=== PATIENT | female | born 1965 | race Caucasian/White ===

== ENCOUNTER 2018-10-22 19:48 | Emergency (ER) | payer MEDICARE, MEDICAID ==
[~2018-10-22] VITALS: Ht 157.5 cm; Wt 120.5 kg
[2018-10-22 20:10] VITALS: BP 195/131
[2018-10-22] MEDS ORDERED: IBUP-1985 PO (20:39)
== END 2018-10-22 20:57 | disposition home or self-care (01) ==
LOC: ER 19:49
DX: M25.512 Pain in left shoulder (principal); Z98.890 Other specified postprocedural states; Z79.899 Other long term (current) drug therapy
CPT/HCPCS: 99282

== ENCOUNTER 2020-02-10 22:38 | Inpatient (IN) | payer MEDICARE, MEDICAID ==
[~2020-02-10] VITALS: Ht 157.5 cm; Wt 118.2 kg
[~2020-02-10 22:38] MED LIST: IBUP-1985 PO
[2020-02-10] MEDS ORDERED: CefTRIAXone 2gm/D5W 50ml 50 ML IV ONE (23:10)
[2020-02-10] MEDS ORDERED: normal saline 1000ML IV soln IVB ONE (23:10)
[2020-02-10 23:30] LABS: BASOPHILS % (AUTO) 0.1 % (0-1); EOSINOPHILS % (AUTO) 0 % (0-6); HEMATOCRIT 32.8 % (35.0-45.0); HEMOGLOBIN 11.1 g/dl (12.0-16.0); LYMPHOCYTES # (AUTO) 1.3 X10'3 (1.1-4.8); LYMPHOCYTES % (AUTO) 9.4 % (21-51); MEAN CORPUSCULAR HEMOGLOBIN 31.6 PG (27.0-31.0); MEAN CORPUSCULAR HGB CONC 33.7 g/dL (33.0-36.5); MEAN CORPUSCULAR VOLUME 93.9 FL (78-98); MEAN PLATELET VOLUME 9.1 FL (7.4-10.4); MONOCYTES # (AUTO) 1.1 X10'3 (0-0.9); MONOCYTES % (AUTO) 7.8 % (2-12); NEUTROPHILS # (AUTO) 11.3 X10'3 (1.8-7.7); NEUTROPHILS % (AUTO) 82.7 % (42-75); PLATELET COUNT 167 X10'3 (140-440); RED BLOOD COUNT 3.49 X10'6 (4.20-5.60); RED CELL DISTRIBUTION WIDTH 13.7 % (11.5-14.5); WHITE BLOOD COUNT 13.7 X10'3 (4.5-11.0)
[2020-02-10 23:43] LABS: PARTIAL THROMBOPLASTIN TIME 33 SECONDS (22-32)
[2020-02-10 23:56] LABS: ALBUMIN 3.1 G/DL (3.4-5.0); ALBUMIN/GLOBULIN RATIO 0.7 (1.1-1.5); ALKALINE PHOSPHATASE 62 IU/L (46-116); ANION GAP 13 (8-16); ASPARTATE AMINO TRANSFERASE 35 U/L (10-37); BILIRUBIN,TOTAL 0.6 MG/DL (0.1-1.0); BLOOD UREA NITROGEN 40 MG/DL (7-18); BUN/CREATININE RATIO 9.5 (6.6-38.0); CALCIUM 8.3 MG/DL (8.5-10.1); CHLORIDE 100 MMOL/L (99-107); CREATININE 4.21 MG/DL (0.40-0.90); GLUCOSE 97 MG/DL (70-104); MAGNESIUM 1.9 MG/DL (1.5-2.4); POTASSIUM 3.2 MMOL/L (3.5-5.1); SODIUM 136 MMOL/L (135-145); TOTAL CARBON DIOXIDE 23.3 MMOL/L (24-32); TOTAL PROTEIN 7.8 G/DL (6.4-8.2); eGFR 11 ML/MIN
[2020-02-11 00:04] LABS: ALANINE AMINOTRANSFERASE 21 U/L (12-78)
[2020-02-11] MEDS ORDERED: normal saline 1000ML IV soln IVB ONE (00:05)
[2020-02-11] MEDS ORDERED: NO HOME MEDS (00:06)
[2020-02-11] MEDS: normal saline 1000ml 1,000 ML IV SCH ×3 (00:38→16:38)
[2020-02-11] MEDS ORDERED: magnesium hydroxide 30ml (MOM) UD suspension PO PRN (00:40)
[2020-02-11] MEDS ORDERED: acetaminophen 325mg tablet PO PRN (00:40)
[2020-02-11] MEDS ORDERED: mag hydrox/Alum hydrox/simeth 30ml oral suspension PO PRN (00:40)
[2020-02-11 01:55] VITALS: BP 150/68
--- NOTE | 2020-02-11 02:03 | NUR ---
Attempted to call dr. ray three times for potassium replacement orders. Unable to reach him at this time.
[2020-02-11] MEDS ORDERED: potassium CL 10mEq/100ml bag 100 ML IV PRN ×2 (02:30)
[2020-02-11] MEDS ORDERED: potassium Cl 20 mEq SR tablet PO PRN ×2 (02:30)
--- NOTE | 2020-02-11 06:00 | NUR ---
Patient in room [facility] 355. I have received report from JO ANN Lucas and had the opportunity to ask questions and assume patient care.
[2020-02-11] MEDS: K and/or MAG REPLACEMENT MC SCH ×2 (08:05→20:00)
[2020-02-11 08:50] VITALS: BP 135/82
[2020-02-11] MEDS ORDERED: ceFAZolin 1GM/D5W- ADD-VANTAGE 50 ML IV SCH (09:55)
[2020-02-11] MEDS ORDERED: potassium chloride 10mEq ER tablet PO ONE (09:55)
[2020-02-11] MEDS: heparin, porcine 5000 units/ml vial SQ SCH ×2 (10:20→20:43)
[2020-02-11] MEDS: HYDROcodone/acetaminophen 5mg/325mg tablet PO PRN ×3 (10:21→21:31)
[2020-02-11 11:10] VITALS: BP 112/64
--- NOTE | 2020-02-11 12:00 | NUR ---
MD Car stated NOT to use the K protocol as patient has a high Creatinine and low GFR so I am to give a once dose of a 10 meq potassium.
[2020-02-11] MEDS ORDERED: CefTRIAXone/D5W-Rocephin 1gm 50 ML IV SCH (14:00)
[2020-02-11] MEDS: ceFAZolin 1GM/D5W- ADD-VANTAGE 50 ML IV SCH (15:21)
--- NOTE | 2020-02-11 18:00 | NUR ---
Problems reprioritized. Patient report given, questions answered & plan of care reviewed with Corine RN.
--- NOTE | 2020-02-11 19:30 | NUR ---
pt states she's had diagnostic studies in [place], but did not get results as she moved; states she did have ? barium swallow study about a year ago at [facility], but did not follow up with results Addendum: 02/12/20 at 0029 by Laurita Becerra RN Amended: Links added.
--- NOTE | 2020-02-11 19:30 | NUR ---
pt states she has stress incont; uses a aleisha pad Addendum: 02/12/20 at 0029 by Laurita Becerra RN Amended: Links added.
--- NOTE | 2020-02-11 19:30 | NUR ---
pt states she's had frequent loose stools before admit; & x4 earlier today; aware of need to sent stool sample to lab Addendum: 02/12/20 at 0201 by Laurita Becerra RN Amended: Links added.
[2020-02-11] MEDS: lactobacillus rhamnosus 10,000 MMU CELLS/CAPSULE PO SCH (20:42)
[2020-02-11 20:45] VITALS: BP 130/66
[2020-02-12] VITALS: BP 125/62
[2020-02-12] MEDS: ceFAZolin 1GM/D5W- ADD-VANTAGE 50 ML IV SCH ×3 (00:35→17:27)
[2020-02-12] MEDS: normal saline 1000ml 1,000 ML IV SCH ×2 (03:04→14:48)
[2020-02-12] MEDS: HYDROcodone/acetaminophen 5mg/325mg tablet PO PRN ×3 (03:05→14:56)
[2020-02-12 05:37] LABS: BASOPHILS % (AUTO) 0.2 % (0-1); EOSINOPHILS # (AUTO) 0.1 X10'3 (0-0.9); EOSINOPHILS % (AUTO) 1.7 % (0-6); HEMOGLOBIN 9.4 g/dl (12.0-16.0); LYMPHOCYTES % (AUTO) 14.9 % (21-51); MEAN CORPUSCULAR HEMOGLOBIN 31.7 PG (27.0-31.0); MEAN CORPUSCULAR HGB CONC 33.7 g/dL (33.0-36.5); MEAN CORPUSCULAR VOLUME 94.1 FL (78-98); MEAN PLATELET VOLUME 9.8 FL (7.4-10.4); MONOCYTES # (AUTO) 0.8 X10'3 (0-0.9); MONOCYTES % (AUTO) 12.2 % (2-12); NEUTROPHILS # (AUTO) 4.7 X10'3 (1.8-7.7); PLATELET COUNT 131 X10'3 (140-440); RED BLOOD COUNT 2.97 X10'6 (4.20-5.60); RED CELL DISTRIBUTION WIDTH 13.8 % (11.5-14.5); WHITE BLOOD COUNT 6.6 X10'3 (4.5-11.0)
[2020-02-12 05:56] LABS: ALANINE AMINOTRANSFERASE 20 U/L (12-78); ALBUMIN 2.4 G/DL (3.4-5.0); ALBUMIN/GLOBULIN RATIO 0.6 (1.1-1.5); ALKALINE PHOSPHATASE 50 IU/L (46-116); ANION GAP 15 (8-16); ASPARTATE AMINO TRANSFERASE 28 U/L (10-37); BILIRUBIN,TOTAL 0.2 MG/DL (0.1-1.0); BLOOD UREA NITROGEN 54 MG/DL (7-18); BUN/CREATININE RATIO 8.8 (6.6-38.0); CALCIUM 8.1 MG/DL (8.5-10.1); CHLORIDE 102 MMOL/L (99-107); CREATININE 6.15 MG/DL (0.40-0.90); GLUCOSE 91 MG/DL (70-104); POTASSIUM 3.4 MMOL/L (3.5-5.1); SODIUM 136 MMOL/L (135-145); TOTAL CARBON DIOXIDE 18.8 MMOL/L (24-32); TOTAL PROTEIN 6.5 G/DL (6.4-8.2); eGFR 7 ML/MIN
--- NOTE | 2020-02-12 06:30 | NUR ---
Patient in room [facility] 355. I have received report from JO ANN Pool and had the opportunity to ask questions and assume patient care.
[2020-02-12 07:00] VITALS: BP 114/92
[2020-02-12] MEDS: heparin, porcine 5000 units/ml vial SQ SCH ×2 (08:19→20:27)
[2020-02-12] MEDS: lactobacillus rhamnosus 10,000 MMU CELLS/CAPSULE PO SCH ×2 (08:19→20:27)
[2020-02-12] MEDS: K and/or MAG REPLACEMENT MC SCH ×2 (08:31→19:33)
[2020-02-12 11:00] VITALS: BP 123/69
--- NOTE | 2020-02-12 18:06 | NUR ---
Problems reprioritized. Patient report given, questions answered & plan of care reviewed with JO ANN Pryor.
--- NOTE | 2020-02-12 18:13 | NUR ---
Pottasium replacement for K+ 3.[address] Galeas D/T renal failure.
[2020-02-12 18:30] VITALS: BP 146/84
--- NOTE | 2020-02-12 18:46 | NUR ---
Patient in room [facility] 355. I have received report from JO ANN Jade and had the opportunity to ask questions and assume patient care.
[2020-02-12 18:56] LABS: CLARITY,URINE SLIGHTLY CLOUDY (Clear); COLOR,URINE YELLOW (Yellow); GLUCOSE, URINE NEGATIVE (Neg); KETONES,URINE NEGATIVE (Neg); OCCULT BLOOD,URINE LARGE (Neg); PH,URINE 5.5 (4.8-8.0); PROTEIN,URINE 30 mg/dl (Neg)
[2020-02-12 18:57] LABS: LEUKOCYTE ESTERASE ,URINE NEGATIVE (Neg); NITRITES, URINE NEGATIVE (Neg); UROBILINOGEN,URINE 0.2 E.U/dL (0.2-1.0)
[2020-02-12 18:59] LABS: UA COLLECTION TYPE CLN CATCH MIDSTREAM
[2020-02-12 19:06] LABS: BACTERIA,URINE 1+ /HPF (Neg); WBC,URINE 0-4 /HPF (0-4)
[2020-02-12 19:07] LABS: RBC,URINE 20-50 /HPF (0-2); SQUAMOUS EPITHELIAL CELL,UR FEW /LPF (FEW)
[2020-02-12 19:29] LABS: UA EOSINOPHILS FEW EOS /HPF
[2020-02-12] MEDS: mineral oil/petrolatum, white cream 113gm jar TP SCH (20:27)
[2020-02-13] MEDS: normal saline 1000ml 1,000 ML IV SCH ×3 (00:02→16:38)
[2020-02-13] MEDS: ceFAZolin 1GM/D5W- ADD-VANTAGE 50 ML IV SCH ×3 (00:02→16:00)
[2020-02-13 00:15] VITALS: BP 142/81
[2020-02-13] MEDS: ondansetron/PF 4mg/2ml inj IV PRN ×2 (01:54→13:14)
[2020-02-13 05:22] LABS: BASOPHILS % (AUTO) 0.4 % (0-1); EOSINOPHILS # (AUTO) 0.1 X10'3 (0-0.9); EOSINOPHILS % (AUTO) 2.3 % (0-6); HEMATOCRIT 27.4 % (35.0-45.0); HEMOGLOBIN 9.3 g/dl (12.0-16.0); LYMPHOCYTES # (AUTO) 1.2 X10'3 (1.1-4.8); LYMPHOCYTES % (AUTO) 19.1 % (21-51); MEAN CORPUSCULAR HEMOGLOBIN 32.3 PG (27.0-31.0); MEAN CORPUSCULAR HGB CONC 33.9 g/dL (33.0-36.5); MEAN CORPUSCULAR VOLUME 95.3 FL (78-98); MEAN PLATELET VOLUME 9.7 FL (7.4-10.4); MONOCYTES # (AUTO) 0.6 X10'3 (0-0.9); MONOCYTES % (AUTO) 9.8 % (2-12); NEUTROPHILS # (AUTO) 4.4 X10'3 (1.8-7.7); NEUTROPHILS % (AUTO) 68.4 % (42-75); PLATELET COUNT 150 X10'3 (140-440); RED BLOOD COUNT 2.87 X10'6 (4.20-5.60); WHITE BLOOD COUNT 6.4 X10'3 (4.5-11.0)
[2020-02-13 05:39] LABS: ALANINE AMINOTRANSFERASE 11 U/L (12-78); ALBUMIN 2.5 G/DL (3.4-5.0); ALBUMIN/GLOBULIN RATIO 0.6 (1.1-1.5); ALKALINE PHOSPHATASE 51 IU/L (46-116); ANION GAP 14 (8-16); BILIRUBIN,TOTAL 0.3 MG/DL (0.1-1.0); BLOOD UREA NITROGEN 56 MG/DL (7-18); BUN/CREATININE RATIO 7.8 (6.6-38.0); CALCIUM 8.1 MG/DL (8.5-10.1); CHLORIDE 103 MMOL/L (99-107); CREATININE 7.19 MG/DL (0.40-0.90); GLUCOSE 90 MG/DL (70-104); SODIUM 136 MMOL/L (135-145); TOTAL CARBON DIOXIDE 19.1 MMOL/L (24-32); TOTAL PROTEIN 6.8 G/DL (6.4-8.2); eGFR 6 ML/MIN
[2020-02-13 06:10] LABS: ASPARTATE AMINO TRANSFERASE 31 U/L (10-37); POTASSIUM 4.3 MMOL/L (3.5-5.1)
--- NOTE | 2020-02-13 06:30 | NUR ---
Patient in room [facility] 355. I have received report from Roya CHERRY and had the opportunity to ask questions and assume patient care.
--- NOTE | 2020-02-13 06:40 | NUR ---
Patient in room [facility] 355. I have received report from Roya CHERRY and had the opportunity to ask questions and assume patient care.
--- NOTE | 2020-02-13 06:41 | NUR ---
Problems reprioritized. Patient report given, questions answered & plan of care reviewed with JO ANN Can.
[2020-02-13 07:26] VITALS: BP 141/70
[2020-02-13] MEDS: K and/or MAG REPLACEMENT MC SCH ×2 (08:00→19:28)
[2020-02-13] MEDS: lactobacillus rhamnosus 10,000 MMU CELLS/CAPSULE PO SCH ×2 (08:39→20:35)
[2020-02-13] MEDS: mineral oil/petrolatum, white cream 113gm jar TP SCH ×3 (08:40→20:36)
[2020-02-13] MEDS: heparin, porcine 5000 units/ml vial SQ SCH ×2 (08:44→20:36)
--- NOTE | 2020-02-13 10:07 | NUR ---
Spoke with angio about patient possible placement of TDC today, made angio aware patient is not NPO and that patient had received heparin today as well. Angio will let me know how we are going to proceed.
[2020-02-13] MEDS ORDERED: LIDOcaine 1%/PF 5ML 10 MG/ML VIAL ONE (11:35)
[2020-02-13] MEDS ORDERED: heparin 1,000unit/ml 10ml vial 10 ML ONE (11:35)
[2020-02-13] MEDS ORDERED: fentaNYL/PF 50MCG/1 ML 2ML syringe ONE (11:36)
[2020-02-13] MEDS ORDERED: gelatin sponge, absorbable (Gelfoam 12-7MM) sponge TP ONE (11:58)
[2020-02-13] MEDS ORDERED: normal saline 1000ml 250 ML IV PRN (12:23)
[2020-02-13] MEDS ORDERED: epoetin 20,000 units/ml inj IV ONE (12:25)
[2020-02-13] MEDS ORDERED: heparin 1,000 units/ml 10ml inj IV ONE (12:25)
[2020-02-13] MEDS ORDERED: heparin 1,000 units/ml 10ml inj HE ONE ×2 (12:30)
--- NOTE | 2020-02-13 16:03 | NUR ---
Patient just being started on dialysis at this time, verified that antibiotics will dialyze off the patient so medications are on hold at this time.
[2020-02-13 18:00] VITALS: BP 152/83
--- NOTE | 2020-02-13 18:22 | NUR ---
Problems reprioritized. Patient report given, questions answered & plan of care reviewed with Prudence RN.
--- NOTE | 2020-02-13 19:27 | NUR ---
Patient in room [facility] 355. I have received report from Juan José CHERRY and had the opportunity to ask questions and assume patient care.
[2020-02-13] MEDS: HYDROcodone/acetaminophen 5mg/325mg tablet PO PRN (20:35)
[2020-02-14] VITALS: BP 127/56
[2020-02-14] MEDS: normal saline 1000ml 1,000 ML IV SCH (00:06)
[2020-02-14] MEDS: ceFAZolin 1GM/D5W- ADD-VANTAGE 50 ML IV SCH ×3 (00:06→15:58)
[2020-02-14] MEDS: ondansetron/PF 4mg/2ml inj IV PRN (02:42)
--- NOTE | 2020-02-14 06:31 | NUR ---
Problems reprioritized. Patient report given, questions answered & plan of care reviewed with Ana Luisa CHERRY.
--- NOTE | 2020-02-14 06:36 | NUR ---
Patient in room SANDY 355B. I have received report from Ana Luisa CHERRY and had the opportunity to ask questions and assume patient care.
--- NOTE | 2020-02-14 06:51 | NUR ---
Patient in room [facility] 355. I have received report from JO ANN Villafuerte and had the opportunity to ask questions and assume patient care.
[2020-02-14 06:57] LABS: BASOPHILS % (AUTO) 0.5 % (0-1); EOSINOPHILS # (AUTO) 0.1 X10'3 (0-0.9); EOSINOPHILS % (AUTO) 2.4 % (0-6); HEMATOCRIT 26.9 % (35.0-45.0); LYMPHOCYTES # (AUTO) 1.2 X10'3 (1.1-4.8); LYMPHOCYTES % (AUTO) 20.7 % (21-51); MEAN CORPUSCULAR HEMOGLOBIN 31.5 PG (27.0-31.0); MEAN CORPUSCULAR HGB CONC 33.5 g/dL (33.0-36.5); MEAN CORPUSCULAR VOLUME 94.2 FL (78-98); MEAN PLATELET VOLUME 9.3 FL (7.4-10.4); MONOCYTES # (AUTO) 0.6 X10'3 (0-0.9); MONOCYTES % (AUTO) 11.1 % (2-12); NEUTROPHILS # (AUTO) 3.7 X10'3 (1.8-7.7); NEUTROPHILS % (AUTO) 65.3 % (42-75); PLATELET COUNT 167 X10'3 (140-440); RED BLOOD COUNT 2.85 X10'6 (4.20-5.60); WHITE BLOOD COUNT 5.7 X10'3 (4.5-11.0)
[2020-02-14 07:17] LABS: ALANINE AMINOTRANSFERASE 6 U/L (12-78); ALBUMIN 2.6 G/DL (3.4-5.0); ALBUMIN/GLOBULIN RATIO 0.6 (1.1-1.5); ALKALINE PHOSPHATASE 52 IU/L (46-116); ANION GAP 10 (8-16); ASPARTATE AMINO TRANSFERASE 22 U/L (10-37); BILIRUBIN,TOTAL 0.3 MG/DL (0.1-1.0); BLOOD UREA NITROGEN 37 MG/DL (7-18); BUN/CREATININE RATIO 6.4 (6.6-38.0); CALCIUM 8.1 MG/DL (8.5-10.1); CHLORIDE 105 MMOL/L (99-107); GLUCOSE 88 MG/DL (70-104); POTASSIUM 3.6 MMOL/L (3.5-5.1); SODIUM 139 MMOL/L (135-145); TOTAL CARBON DIOXIDE 23.6 MMOL/L (24-32); TOTAL PROTEIN 6.7 G/DL (6.4-8.2); eGFR 8 ML/MIN
[2020-02-14 08:00] VITALS: BP 146/73
[2020-02-14] MEDS ORDERED: normal saline 1000ml 250 ML IV PRN (08:00)
[2020-02-14] MEDS ORDERED: heparin 1,000 units/ml 10ml inj HE ONE ×2 (08:00)
[2020-02-14] MEDS ORDERED: epoetin 20,000 units/ml inj IV ONE (08:00)
[2020-02-14] MEDS ORDERED: heparin 1,000 units/ml 10ml inj IV ONE (08:00)
[2020-02-14] MEDS ORDERED: heparin 1,000unit/ml 10ml vial 10 ML IV ONE (08:00)
[2020-02-14] MEDS: lactobacillus rhamnosus 10,000 MMU CELLS/CAPSULE PO SCH ×2 (08:17→20:30)
[2020-02-14] MEDS: heparin, porcine 5000 units/ml vial SQ SCH ×2 (08:20→20:30)
[2020-02-14] MEDS: mineral oil/petrolatum, white cream 113gm jar TP SCH ×3 (09:49→20:36)
[2020-02-14] MEDS: HYDROcodone/acetaminophen 5mg/325mg tablet PO PRN (11:37)
[2020-02-14 11:52] VITALS: BP 153/75
--- NOTE | 2020-02-14 12:48 | NUR ---
Student documentation: I have reviewed and agree with all interventions, assessments performed and documented by Jose Daniel, nursing manager.
--- NOTE | 2020-02-14 12:48 | NUR ---
Student Medication Administration: For this medication-pass time frame, all medication were reviewed, dispensed, administered and documented per hospital policy by namita Sky.
--- NOTE | 2020-02-14 15:56 | NUR ---
Problems reprioritized. Patient report given, questions answered & plan of care reviewed with [].
--- NOTE | 2020-02-14 15:57 | NUR ---
Problems reprioritized. Patient report given, questions answered & plan of care reviewed with Ana Luisa CHERRY.
[2020-02-14 18:00] VITALS: BP 149/71
--- NOTE | 2020-02-14 18:33 | NUR ---
Problems reprioritized. Patient report given, questions answered & plan of care reviewed with JO ANN Villafuerte.
--- NOTE | 2020-02-14 19:06 | NUR ---
Patient in room [facility] 355. I have received report from ANA M CHERRY and had the opportunity to ask questions and assume patient care.
[2020-02-15] MEDS: ceFAZolin 1GM/D5W- ADD-VANTAGE 50 ML IV SCH ×3 (00:31→17:19)
[2020-02-15 00:59] VITALS: BP 136/67
[2020-02-15] MEDS: HYDROcodone/acetaminophen 5mg/325mg tablet PO PRN ×3 (03:55→20:02)
--- NOTE | 2020-02-15 06:20 | NUR ---
Problems reprioritized. Patient report given, questions answered & plan of care reviewed with Marci CHERRY.
[2020-02-15 07:00] VITALS: BP 119/56
[2020-02-15 07:17] LABS: COMPLEMENT C3, SERUM 155 mg/dL (82-167); COMPLEMENT C4, SERUM 27 mg/dL (14-44)
[2020-02-15 07:54] LABS: ALANINE AMINOTRANSFERASE 6 U/L (12-78); ALBUMIN 2.6 G/DL (3.4-5.0); ALBUMIN/GLOBULIN RATIO 0.6 (1.1-1.5); ALKALINE PHOSPHATASE 52 IU/L (46-116); ANION GAP 13 (8-16); ASPARTATE AMINO TRANSFERASE 31 U/L (10-37); BILIRUBIN,TOTAL 0.2 MG/DL (0.1-1.0); BLOOD UREA NITROGEN 46 MG/DL (7-18); BUN/CREATININE RATIO 6.4 (6.6-38.0); CALCIUM 8.3 MG/DL (8.5-10.1); CHLORIDE 105 MMOL/L (99-107); CREATININE 7.22 MG/DL (0.40-0.90); GLUCOSE 86 MG/DL (70-104); SODIUM 140 MMOL/L (135-145); TOTAL CARBON DIOXIDE 22.1 MMOL/L (24-32); TOTAL PROTEIN 6.7 G/DL (6.4-8.2); eGFR 6 ML/MIN
[2020-02-15 07:57] LABS: POTASSIUM 4.6 MMOL/L (3.5-5.1)
[2020-02-15] MEDS ORDERED: epoetin 20,000 units/ml inj IV ONE (08:00)
[2020-02-15] MEDS: heparin, porcine 5000 units/ml vial SQ SCH ×2 (08:00→20:03)
[2020-02-15] MEDS ORDERED: heparin 1,000 units/ml 10ml inj IV ONE (08:00)
[2020-02-15] MEDS ORDERED: heparin 1,000 units/ml 10ml inj HE ONE ×2 (08:00)
[2020-02-15] MEDS ORDERED: heparin 1,000unit/ml 10ml vial 10 ML IV ONE (08:00)
[2020-02-15] MEDS ORDERED: normal saline 1000ml 250 ML IV PRN (08:00)
[2020-02-15] MEDS: mineral oil/petrolatum, white cream 113gm jar TP SCH ×3 (08:25→20:06)
[2020-02-15] MEDS: lactobacillus rhamnosus 10,000 MMU CELLS/CAPSULE PO SCH ×2 (08:26→20:01)
[2020-02-15 08:28] LABS: HBSAG SCREEN Negative (Negative); HEP B CORE AB, TOT Negative (Negative)
[2020-02-15 09:01] LABS: BASOPHILS % (AUTO) 0.5 % (0-1); EOSINOPHILS # (AUTO) 0.1 X10'3 (0-0.9); HEMATOCRIT 28.6 % (35.0-45.0); HEMOGLOBIN 9.5 g/dl (12.0-16.0); LYMPHOCYTES # (AUTO) 1.3 X10'3 (1.1-4.8); LYMPHOCYTES % (AUTO) 20.7 % (21-51); MEAN CORPUSCULAR HEMOGLOBIN 31.2 PG (27.0-31.0); MEAN CORPUSCULAR HGB CONC 33.2 g/dL (33.0-36.5); MEAN CORPUSCULAR VOLUME 94.1 FL (78-98); MEAN PLATELET VOLUME 9.3 FL (7.4-10.4); MONOCYTES # (AUTO) 0.4 X10'3 (0-0.9); MONOCYTES % (AUTO) 6.5 % (2-12); NEUTROPHILS # (AUTO) 4.5 X10'3 (1.8-7.7); NEUTROPHILS % (AUTO) 70.3 % (42-75); PLATELET COUNT 206 X10'3 (140-440); RED BLOOD COUNT 3.04 X10'6 (4.20-5.60); RED CELL DISTRIBUTION WIDTH 14.1 % (11.5-14.5); WHITE BLOOD COUNT 6.4 X10'3 (4.5-11.0)
[2020-02-15 11:00] VITALS: BP 116/90
[2020-02-15] MEDS: ondansetron/PF 4mg/2ml inj IV PRN (12:25)
[2020-02-15 19:47] VITALS: BP 163/68
[2020-02-16] MEDS: ceFAZolin 1GM/D5W- ADD-VANTAGE 50 ML IV SCH ×4 (00:03→23:29)
[2020-02-16 00:13] VITALS: BP 142/74
--- NOTE | 2020-02-16 06:28 | NUR ---
Patient in room [facility] 355. I have received report from Hawk CHERRY and had the opportunity to ask questions and assume patient care.
[2020-02-16] MEDS: heparin, porcine 5000 units/ml vial SQ SCH ×2 (07:04→19:20)
[2020-02-16] MEDS: lactobacillus rhamnosus 10,000 MMU CELLS/CAPSULE PO SCH ×2 (07:11→19:20)
[2020-02-16] MEDS: mineral oil/petrolatum, white cream 113gm jar TP SCH ×3 (07:17→19:21)
[2020-02-16 07:21] VITALS: BP 176/90
[2020-02-16] MEDS: HYDROcodone/acetaminophen 5mg/325mg tablet PO PRN (09:50)
--- NOTE | 2020-02-16 09:56 | NUR ---
Faxed kitchen for a request for breakfast tray, renal diet. Patient just asked when breakfast was and states she didn't get a tray.
[2020-02-16] MEDS ORDERED: epoetin 20,000 units/ml inj IV ONE (10:00)
[2020-02-16] MEDS ORDERED: heparin 1,000unit/ml 10ml vial 10 ML IV ONE (10:00)
[2020-02-16] MEDS ORDERED: heparin 1,000 units/ml 10ml inj HE ONE ×2 (10:05)
[2020-02-16 11:00] VITALS: BP 148/64
[2020-02-16 13:08] LABS: BASOPHILS % (AUTO) 0.5 % (0-1); EOSINOPHILS # (AUTO) 0.1 X10'3 (0-0.9); EOSINOPHILS % (AUTO) 1.9 % (0-6); HEMATOCRIT 27.7 % (35.0-45.0); HEMOGLOBIN 9.2 g/dl (12.0-16.0); LYMPHOCYTES # (AUTO) 1.1 X10'3 (1.1-4.8); LYMPHOCYTES % (AUTO) 17.7 % (21-51); MEAN CORPUSCULAR HEMOGLOBIN 31.1 PG (27.0-31.0); MEAN CORPUSCULAR HGB CONC 33.2 g/dL (33.0-36.5); MEAN CORPUSCULAR VOLUME 93.7 FL (78-98); MEAN PLATELET VOLUME 9.1 FL (7.4-10.4); MONOCYTES # (AUTO) 0.5 X10'3 (0-0.9); MONOCYTES % (AUTO) 7.8 % (2-12); NEUTROPHILS # (AUTO) 4.6 X10'3 (1.8-7.7); NEUTROPHILS % (AUTO) 72.1 % (42-75); PLATELET COUNT 239 X10'3 (140-440); RED BLOOD COUNT 2.96 X10'6 (4.20-5.60); RED CELL DISTRIBUTION WIDTH 14.2 % (11.5-14.5); WHITE BLOOD COUNT 6.4 X10'3 (4.5-11.0)
[2020-02-16 13:35] LABS: ALANINE AMINOTRANSFERASE 8 U/L (12-78); ALBUMIN 2.7 G/DL (3.4-5.0); ALBUMIN/GLOBULIN RATIO 0.6 (1.1-1.5); ALKALINE PHOSPHATASE 55 IU/L (46-116); ANION GAP 12 (8-16); ASPARTATE AMINO TRANSFERASE 32 U/L (10-37); BILIRUBIN,TOTAL 0.2 MG/DL (0.1-1.0); BLOOD UREA NITROGEN 52 MG/DL (7-18); BUN/CREATININE RATIO 6.1 (6.6-38.0); CALCIUM 8.4 MG/DL (8.5-10.1); CHLORIDE 102 MMOL/L (99-107); CREATININE 8.48 MG/DL (0.40-0.90); GLUCOSE 121 MG/DL (70-104); POTASSIUM 3.9 MMOL/L (3.5-5.1); SODIUM 138 MMOL/L (135-145); TOTAL PROTEIN 7.1 G/DL (6.4-8.2); eGFR 5 ML/MIN
--- NOTE | 2020-02-16 14:47 | NUR ---
Initial: Pt admit w/ sepsis secondary to LLE cellulitis, acute renal failure vs CKD, and now on HD per . PO 75-100% avg renal diet past 3 days up from 50-75% first 2 days admit. Given pt wt and protein needs on HD w/ sepsis DX Nepro TIDWM recommended; notified. LBM 02/14. Will continue to monitor for additional protein needs. Rec: 1. continue renal diet 2. Nepro TIDWM 3. bowel care as needed 4. wts w/ HD Addendum: 02/16/20 at [address] Amended: Links added.
--- NOTE | 2020-02-16 18:18 | NUR ---
Problems reprioritized. Patient report given, questions answered & plan of care reviewed with Hawk CHERRY.
[2020-02-16] MEDS: ondansetron/PF 4mg/2ml inj IV PRN (18:25)
[2020-02-16 18:27] VITALS: BP 90/72
[2020-02-16] MEDS: NUT.TX.IMP.RENAL FXN,LAC-REDUC (Nepro) 237 ML VANILLA PO SCH (18:43)
[2020-02-16 23:37] VITALS: BP 150/78
[2020-02-17] MEDS: ondansetron/PF 4mg/2ml inj IV PRN (00:21)
[2020-02-17 07:11] VITALS: BP 151/73
[2020-02-17] MEDS: lactobacillus rhamnosus 10,000 MMU CELLS/CAPSULE PO SCH (07:50)
[2020-02-17] MEDS: ceFAZolin 1GM/D5W- ADD-VANTAGE 50 ML IV SCH (07:51)
[2020-02-17] MEDS: heparin, porcine 5000 units/ml vial SQ SCH (07:51)
[2020-02-17] MEDS: NUT.TX.IMP.RENAL FXN,LAC-REDUC (Nepro) 237 ML VANILLA PO SCH (07:53)
[2020-02-17] MEDS: mineral oil/petrolatum, white cream 113gm jar TP SCH (07:53)
[2020-02-17] MEDS ORDERED: CEPH250T PO (10:14)
[2020-02-17] MEDS ORDERED: AMLO5TAB16 PO (10:16)
[2020-02-17 11:45] VITALS: BP 149/65
--- NOTE | 2020-02-17 12:03 | NUR ---
Patient stable and appropriate for DC home with family. IV removed, all belongings taken from room. TDC left in place patient is aware of Dialysis schedule at [facility]. New prescriptions transmitted to [facility] on [address] [place] patient is aware of next due doses. Discharge instructions and packet given and reviewed with patient, all questions answered.
== END 2020-02-17 11:56 | disposition home or self-care (01) | DRG 871 ==
LOC: ER 22:39 → ED HOLD 02-11 00:38 → SUR 3N 02-11 01:35
PROVIDERS: ADMIT Internal Medicine; ATTEND Internal Medicine
PROC: 0JH63XZ Insertion of Tunneled Vascular Access Device into Chest Subcutaneous Tissue and Fascia, Percutaneous Approach (ICD-10-PCS; principal; 2020-02-13)
PROC: 02HV33Z Insertion of Infusion Device into Superior Vena Cava, Percutaneous Approach (ICD-10-PCS; 2020-02-13)
PROC: B548ZZA Ultrasonography of Superior Vena Cava, Guidance (ICD-10-PCS; 2020-02-13)
PROC: 5A1D70Z Performance of Urinary Filtration, Intermittent, Less than 6 Hours Per Day (ICD-10-PCS; 2020-02-13)
PROC: 5A1D70Z Performance of Urinary Filtration, Intermittent, Less than 6 Hours Per Day (ICD-10-PCS; 2020-02-16)
DX: A41.9 Sepsis, unspecified organism (principal); N17.0 Acute kidney failure with tubular necrosis; L03.116 Cellulitis of left lower limb; Z68.42 Body mass index [BMI] 45.0-49.9, adult; E87.6 Hypokalemia; D69.6 Thrombocytopenia, unspecified; I35.0 Nonrheumatic aortic (valve) stenosis; E66.01 Morbid (severe) obesity due to excess calories; G89.29 Other chronic pain; K21.9 Gastro-esophageal reflux disease without esophagitis; Z99.2 Dependence on renal dialysis; Z98.1 Arthrodesis status; Z96.653 Presence of artificial knee joint, bilateral; W57.XXXA Bitten or stung by nonvenomous insect and other nonvenomous arthropods, initial encounter; X58.XXXA Exposure to other specified factors, initial encounter; Y93.89 Activity, other specified; Y92.89 Other specified places as the place of occurrence of the external cause; Y99.8 Other external cause status
CPT/HCPCS: 36415; 36558; 71045; 76700; 76937; 80053; 81001; 82570; 83605; 83735; 83935; 84145; 84300; 85025; 85610; 85730; 86160; 86704; 86706; 87040; 87081; 87207; 87340; 93306; 93971; 99285; C1750; C1769; C1894; G0378; J0690; J0696; J1644; J2150; J2405; J3010; J7030; Q4081

== ENCOUNTER 2020-04-12 11:24 | Day surgery (SDC) | payer MEDICARE, MEDICAID ==
[~2020-04-12] VITALS: Ht 157.5 cm; Wt 121.7 kg
[~2020-04-12 11:24] MED LIST changes: +AMLO5TAB16 PO; +CEPH250T PO; -IBUP-1985 PO
[2020-04-12] MEDS ORDERED: normal saline 1000ml 1,000 ML IV SCH (11:55)
[2020-04-12 12:12] VITALS: BP 120/82
[2020-04-12] MEDS ORDERED: FA/V1TAB PO (12:16)
[2020-04-12] MEDS ORDERED: CALC667T8 PO (12:16)
[2020-04-12] MEDS ORDERED: fentaNYL/PF 50MCG/1 ML 2ML syringe ONE (13:06)
[2020-04-12] MEDS ORDERED: midazolam 2 mg/2 ml injection ONE (13:06)
[2020-04-12] MEDS ORDERED: heparin 1,000unit/ml 10ml vial 10 ML ONE (13:07)
[2020-04-12] MEDS ORDERED: LIDOcaine 1%/PF 5ML 10 MG/ML VIAL ONE (13:07)
[2020-04-12 13:51] VITALS: BP 120/88
[2020-04-12 14:25] VITALS: BP 105/55
== END 2020-04-12 14:28 | disposition home or self-care (01) ==
LOC: SSTAY O 11:24
PROVIDERS: ATTEND Radiology Vascular & Interventional Radiology
DX: T82.49XA Other complication of vascular dialysis catheter, initial encounter (principal); Y83.8 Other surgical procedures as the cause of abnormal reaction of the patient, or of later complication, without mention of misadventure at the time of the procedure; Z79.899 Other long term (current) drug therapy
CPT/HCPCS: 36581; 77001; 99152; C1750; C1769; J1644; J2250; J3010; A9270

== ENCOUNTER 2020-05-16 12:29 | Emergency (ER) | payer MEDICARE, MEDICAID ==
[~2020-05-16] VITALS: Ht 152.4 cm; Wt 116.7 kg
[~2020-05-16 12:29] MED LIST changes: +CALC667T8 PO; -CEPH250T PO; +FA/V1TAB PO
[2020-05-16 12:34] VITALS: BP 149/89
== END 2020-05-16 14:08 | disposition home or self-care (01) ==
LOC: ER 12:29
DX: T82.9XXA Unspecified complication of cardiac and vascular prosthetic device, implant and graft, initial encounter (principal); N18.6 End stage renal disease; Z99.2 Dependence on renal dialysis; Z79.899 Other long term (current) drug therapy
CPT/HCPCS: 71045; 99283

== ENCOUNTER 2020-06-27 01:15 | Emergency (ER) | payer MEDICARE, MEDICAID ==
[~2020-06-27] VITALS: Ht 157.5 cm; Wt 106.0 kg
[2020-06-27 03:24] VITALS: BP 139/74
[2020-06-28] MEDS ORDERED: LIDOcaine 1%/PF 5ML 10 MG/ML VIAL ONE (17:43)
[2020-06-28] MEDS ORDERED: heparin 1,000unit/ml 10ml vial 10 ML ONE (17:43)
[2020-06-28] MEDS ORDERED: iohexol 300 MG/1 ML 50ml polymer ONE (17:43)
[2020-06-28] MEDS ORDERED: fentaNYL/PF 50MCG/1 ML 2ML syringe ONE (17:43)
== END 2020-06-27 03:26 | disposition home or self-care (01) ==
LOC: ER 01:16
DX: T82.42XA Displacement of vascular dialysis catheter, initial encounter (principal); N18.9 Chronic kidney disease, unspecified; Z79.899 Other long term (current) drug therapy
CPT/HCPCS: 71046; 99283; J1644; J3010; Q9967

== ENCOUNTER 2020-06-28 11:25 | Day surgery (SDC) | payer MEDICARE, MEDICAID ==
[~2020-06-28] VITALS: Ht 157.5 cm; Wt 116.3 kg
[2020-06-28 11:49] VITALS: BP 154/90
[2020-06-28] MEDS ORDERED: normal saline 1000ml 1,000 ML IV SCH (12:00)
[2020-06-28 12:37] LABS: BASOPHILS % (AUTO) 0.8 % (0-1); EOSINOPHILS # (AUTO) 0.1 X10'3 (0-0.9); EOSINOPHILS % (AUTO) 2.4 % (0-6); HEMATOCRIT 39.8 % (35.0-45.0); HEMOGLOBIN 13.1 g/dl (12.0-16.0); LYMPHOCYTES # (AUTO) 1.5 X10'3 (1.1-4.8); LYMPHOCYTES % (AUTO) 26.1 % (21-51); MEAN CORPUSCULAR HEMOGLOBIN 31.4 PG (27.0-31.0); MEAN PLATELET VOLUME 8.5 FL (7.4-10.4); MONOCYTES # (AUTO) 0.5 X10'3 (0-0.9); MONOCYTES % (AUTO) 7.9 % (2-12); NEUTROPHILS # (AUTO) 3.6 X10'3 (1.8-7.7); NEUTROPHILS % (AUTO) 62.8 % (42-75); PLATELET COUNT 278 X10'3 (140-440); RED BLOOD COUNT 4.19 X10'6 (4.20-5.60); WHITE BLOOD COUNT 5.8 X10'3 (4.5-11.0)
[2020-06-28 12:42] LABS: ALBUMIN 3.5 G/DL (3.4-5.0); ANION GAP 9 (8-16); BLOOD UREA NITROGEN 42 MG/DL (7-18); BUN/CREATININE RATIO 14.3 (6.6-38.0); CALCIUM 9.4 MG/DL (8.5-10.1); CHLORIDE 106 MMOL/L (99-107); CREATININE 2.93 MG/DL (0.40-0.90); GLUCOSE 82 MG/DL (70-104); POTASSIUM 4.3 MMOL/L (3.5-5.1); SODIUM 140 MMOL/L (135-145); TOTAL CARBON DIOXIDE 25.3 MMOL/L (24-32); eGFR 17 ML/MIN
[2020-06-28 18:49] VITALS: BP 160/89
[2020-06-28] MEDS ORDERED: acetaminophen 325mg tablet PO PRN (18:50)
[2020-06-28 18:57] VITALS: BP 164/70
== END 2020-06-28 19:30 | disposition home or self-care (01) ==
LOC: SSTAY O 11:25
PROVIDERS: ATTEND Radiology Vascular & Interventional Radiology
DX: T82.42XA Displacement of vascular dialysis catheter, initial encounter (principal); N18.6 End stage renal disease; Z79.899 Other long term (current) drug therapy; Y84.8 Other medical procedures as the cause of abnormal reaction of the patient, or of later complication, without mention of misadventure at the time of the procedure; Y92.89 Other specified places as the place of occurrence of the external cause
CPT/HCPCS: 36415; 36558; 76937; 77001; 80048; 85025; C1750; C1769; C1894; J7030; A9270

== ENCOUNTER 2020-07-13 12:06 | Inpatient (IN) | payer MEDICARE, MEDICAID ==
[~2020-07-13] VITALS: Ht 157.5 cm; Wt 116.4 kg
[~2020-07-13 12:06] MED LIST changes: -AMLO5TAB16 PO
[2020-07-13] MEDS ORDERED: acetaminophen 325mg tablet PO STA (12:25)
--- NOTE | 2020-07-13 12:59 | NUR ---
AUSTIN (SISTER)[phone] PLEASE UPDATE WHEN POSSIBLE
[2020-07-13 13:01] LABS: EOSINOPHILS % (AUTO) 0 % (0-6); LYMPHOCYTES # (AUTO) 0.6 X10'3 (1.1-4.8); MONOCYTES % (AUTO) 7.5 % (2-12)
[2020-07-13 13:03] LABS: BASOPHILS % (AUTO) 0.2 % (0-1); HEMATOCRIT 35.2 % (35.0-45.0); LYMPHOCYTES % (AUTO) 4.3 % (21-51); MEAN CORPUSCULAR HEMOGLOBIN 31.9 PG (27.0-31.0); MEAN CORPUSCULAR HGB CONC 34.2 g/dL (33.0-36.5); MEAN CORPUSCULAR VOLUME 93.2 FL (78-98); MEAN PLATELET VOLUME 9.8 FL (7.4-10.4); NEUTROPHILS # (AUTO) 11.7 X10'3 (1.8-7.7); PLATELET COUNT 135 X10'3 (140-440); RED BLOOD COUNT 3.77 X10'6 (4.20-5.60); RED CELL DISTRIBUTION WIDTH 15.2 % (11.5-14.5); WHITE BLOOD COUNT 13.3 X10'3 (4.5-11.0)
[2020-07-13 13:33] LABS: PLATELET ESTIMATE NORMAL; TOTAL CELLS COUNTED 100
[2020-07-13 13:35] LABS: TOXIC VACUOLATION FEW
[2020-07-13 13:42] LABS: ALANINE AMINOTRANSFERASE 39 U/L (12-78); ALBUMIN 3.2 G/DL (3.4-5.0); ALBUMIN/GLOBULIN RATIO 0.7 (1.1-1.5); ALKALINE PHOSPHATASE 68 IU/L (46-116); ANION GAP 11 (8-16); ASPARTATE AMINO TRANSFERASE 40 U/L (10-37); BILIRUBIN,TOTAL 0.7 MG/DL (0.1-1.0); BLOOD UREA NITROGEN 33 MG/DL (7-18); BUN/CREATININE RATIO 9.7 (6.6-38.0); CALCIUM 9.3 MG/DL (8.5-10.1); CHLORIDE 95 MMOL/L (99-107); CREATININE 3.39 MG/DL (0.40-0.90); GLUCOSE 111 MG/DL (70-104); MAGNESIUM 1.5 MG/DL (1.5-2.4); POTASSIUM 3.4 MMOL/L (3.5-5.1); SODIUM 129 MMOL/L (135-145); TOTAL CARBON DIOXIDE 22.8 MMOL/L (24-32); eGFR 14 ML/MIN
[2020-07-13] MEDS ORDERED: bisacodyl 10mg suppository rectal RC PRN (14:20)
[2020-07-13] MEDS ORDERED: acetaminophen 325mg tablet PO PRN (14:20)
[2020-07-13] MEDS ORDERED: heparin 1,000unit/ml 10ml vial 10 ML IV ONE (14:20)
[2020-07-13] MEDS ORDERED: heparin 1,000 units/ml 10ml inj HE ONE ×2 (14:25)
[2020-07-13] MEDS ORDERED: FOLI1TAB34 PO (14:37)
[2020-07-13 15:00] VITALS: BP 116/86
--- NOTE | 2020-07-13 15:06 | NUR ---
Patient in room ED 9. I have received report from JO ANN Slater and had the opportunity to ask questions and assume patient care.
[2020-07-13] MEDS ORDERED: piperacillin/tazo 3.375gm/50ml 50 ML IV SCH ×2 (15:30→20:00)
[2020-07-13 16:01] LABS: CLARITY,URINE CLOUDY (Clear); COLOR,URINE AMBER (Yellow); GLUCOSE, URINE NEGATIVE (Neg); KETONES,URINE TRACE mg/dl (Neg); LEUKOCYTE ESTERASE ,URINE TRACE (Neg); NITRITES, URINE NEGATIVE (Neg); OCCULT BLOOD,URINE LARGE (Neg); PH,URINE 5.5 (4.8-8.0); PROTEIN,URINE >=300 mg/dl (Neg); UA COLLECTION TYPE CLN CATCH MIDSTREAM
[2020-07-13] MEDS: HYDROcodone/acetaminophen 10/325mg tab PO PRN ×2 (16:01→22:04)
[2020-07-13 16:06] LABS: RBC,URINE TNTC /HPF (0-2)
[2020-07-13 16:07] LABS: TRANSITIONAL EPI CELLS,URINE FEW /HPF
[2020-07-13 16:08] LABS: RENAL CELLS, URINE FEW /HPF
[2020-07-13 16:12] LABS: AMORPHOUS URATES 2+; BACTERIA,URINE 3+ /HPF (Neg)
[2020-07-13 16:14] LABS: SQUAMOUS EPITHELIAL CELL,UR FEW /LPF (FEW)
[2020-07-13] MEDS: ibuprofen tablet 400 MG TABLET PO PRN (17:08)
[2020-07-13] MEDS: piperacillin/tazo 3.375gm/50ml 50 ML IV SCH (17:09)
[2020-07-13 18:00] VITALS: BP 114/60
--- NOTE | 2020-07-13 18:36 | NUR ---
Patient in room PCU 3028. I have received report from Julienne CHERRY and had the opportunity to ask questions and assume patient care.
--- NOTE | 2020-07-13 18:40 | NUR ---
Patient in room PCU 3028. I have received report from Julienne CHERRY and had the opportunity to ask questions and assume patient care.
--- NOTE | 2020-07-13 18:46 | NUR ---
Problems reprioritized. Patient report given, questions answered & plan of care reviewed with JO ANN Meeks.
[2020-07-13] MEDS: heparin, porcine 5000 units/ml vial SQ SCH (19:21)
[2020-07-13] MEDS: docusate sod 100mg capsule PO SCH (20:18)
[2020-07-13 22:00] VITALS: BP 141/69
[2020-07-14 01:42] LABS: ALANINE AMINOTRANSFERASE 40 U/L (12-78); ALBUMIN 3.2 G/DL (3.4-5.0); ALBUMIN/GLOBULIN RATIO 0.6 (1.1-1.5); ALKALINE PHOSPHATASE 70 IU/L (46-116); ANION GAP 9 (8-16); ASPARTATE AMINO TRANSFERASE 40 U/L (10-37); BILIRUBIN,TOTAL 0.9 MG/DL (0.1-1.0); BLOOD UREA NITROGEN 18 MG/DL (7-18); BUN/CREATININE RATIO 6.4 (6.6-38.0); CALCIUM 9.3 MG/DL (8.5-10.1); CHLORIDE 95 MMOL/L (99-107); CREATININE 2.81 MG/DL (0.40-0.90); GLUCOSE 117 MG/DL (70-104); POTASSIUM 3.9 MMOL/L (3.5-5.1); SODIUM 131 MMOL/L (135-145); TOTAL CARBON DIOXIDE 26.6 MMOL/L (24-32); TOTAL PROTEIN 8.2 G/DL (6.4-8.2); eGFR 17 ML/MIN
[2020-07-14 01:46] LABS: MAGNESIUM 1.9 MG/DL (1.5-2.4); PHOSPHORUS 3.9 MG/DL (2.3-4.5)
[2020-07-14 02:00] VITALS: BP 150/80
[2020-07-14] MEDS: piperacillin/tazo 3.375gm/50ml 50 ML IV SCH ×2 (03:05→17:24)
[2020-07-14] MEDS: HYDROcodone/acetaminophen 10/325mg tab PO PRN (03:05)
[2020-07-14 05:37] LABS: BASOPHILS % (AUTO) 0.1 % (0-1); EOSINOPHILS % (AUTO) 0.1 % (0-6); HEMATOCRIT 35.6 % (35.0-45.0); HEMOGLOBIN 11.9 g/dl (12.0-16.0); LYMPHOCYTES # (AUTO) 0.6 X10'3 (1.1-4.8); LYMPHOCYTES % (AUTO) 4.9 % (21-51); MEAN CORPUSCULAR HEMOGLOBIN 31.5 PG (27.0-31.0); MEAN CORPUSCULAR HGB CONC 33.5 g/dL (33.0-36.5); MEAN PLATELET VOLUME 9.6 FL (7.4-10.4); MONOCYTES # (AUTO) 1.4 X10'3 (0-0.9); MONOCYTES % (AUTO) 11.1 % (2-12); NEUTROPHILS # (AUTO) 10.3 X10'3 (1.8-7.7); NEUTROPHILS % (AUTO) 83.8 % (42-75); PLATELET COUNT 123 X10'3 (140-440); RED BLOOD COUNT 3.79 X10'6 (4.20-5.60); RED CELL DISTRIBUTION WIDTH 15.2 % (11.5-14.5); WHITE BLOOD COUNT 12.2 X10'3 (4.5-11.0)
[2020-07-14] MEDS: oxyCODONE/APAP 10/325mg tablet PO PRN ×5 (05:49→21:31)
[2020-07-14 06:00] VITALS: BP 114/73
--- NOTE | 2020-07-14 06:24 | NUR ---
Problems reprioritized. Patient report given, questions answered & plan of care reviewed with Julienne CHERRY.
--- NOTE | 2020-07-14 06:32 | NUR ---
Patient in room PCU 3028. I have received report from JO ANN Meeks and had the opportunity to ask questions and assume patient care.
--- NOTE | 2020-07-14 07:01 | NUR ---
[place]rientee documentation: I have reviewed and agree with all interventions, assessments performed, and Medications administered documented by Rosi CHERRY.
--- NOTE | 2020-07-14 07:01 | NUR ---
Problems reprioritized. Patient report given, questions answered & plan of care reviewed with Julienne CHERRY.
[2020-07-14] MEDS ORDERED: levoFLOXACIN-Levaquin 250mg/D5 50 ML IV SCH (08:00)
[2020-07-14] MEDS: heparin, porcine 5000 units/ml vial SQ SCH ×2 (08:57→19:50)
[2020-07-14] MEDS: docusate sod 100mg capsule PO SCH ×2 (08:57→19:49)
[2020-07-14] MEDS ORDERED: vancomycin/NS 1 GM ADD-VANTAGE 250 ML IV PRN (09:55)
[2020-07-14] MEDS ORDERED: vancomycin/NS 1 GM ADD-VANTAGE 250 ML IV ONE (10:05)
[2020-07-14] MEDS: ondansetron/PF 4mg/2ml inj IV PRN (10:13)
[2020-07-14 18:00] VITALS: BP 105/67
--- NOTE | 2020-07-14 18:15 | NUR ---
Patient in room PCU 3028. I have received report from JO ANN Robins and had the opportunity to ask questions and assume patient care.
--- NOTE | 2020-07-14 19:04 | NUR ---
Problems reprioritized. Patient report given, questions answered & plan of care reviewed with April CHERRY.
[2020-07-14] MEDS: lactobacillus rhamnosus 10,000 MMU CELLS/CAPSULE PO SCH (19:49)
[2020-07-14 22:00] VITALS: BP 120/92
[2020-07-15] VITALS (7 sets, daily range): BP systolic 95–150; BP diastolic 59–92
[2020-07-15] MEDS: oxyCODONE/APAP 10/325mg tablet PO PRN ×2 (01:27→09:24)
[2020-07-15] MEDS: VANCOMYCIN LEVEL IV SCH (03:00)
[2020-07-15] MEDS: piperacillin/tazo 3.375gm/50ml 50 ML IV SCH ×2 (04:09→16:46)
[2020-07-15] MEDS: ondansetron/PF 4mg/2ml inj IV PRN ×2 (05:02→13:20)
[2020-07-15 06:01] LABS: LYMPHOCYTES # (AUTO) 0.9 X10'3 (1.1-4.8); MEAN CORPUSCULAR HEMOGLOBIN 32.5 PG (27.0-31.0); MONOCYTES # (AUTO) 1.6 X10'3 (0-0.9)
[2020-07-15 06:03] LABS: BASOPHILS % (AUTO) 0.3 % (0-1); EOSINOPHILS % (AUTO) 0.4 % (0-6); HEMATOCRIT 34.3 % (35.0-45.0); HEMOGLOBIN 11.7 g/dl (12.0-16.0); LYMPHOCYTES % (AUTO) 9.5 % (21-51); MEAN CORPUSCULAR HGB CONC 34.1 g/dL (33.0-36.5); MEAN CORPUSCULAR VOLUME 95.3 FL (78-98); MEAN PLATELET VOLUME 9.9 FL (7.4-10.4); MONOCYTES % (AUTO) 17.1 % (2-12); NEUTROPHILS # (AUTO) 6.9 X10'3 (1.8-7.7); NEUTROPHILS % (AUTO) 72.7 % (42-75); PLATELET COUNT 140 X10'3 (140-440); RED CELL DISTRIBUTION WIDTH 15.3 % (11.5-14.5); WHITE BLOOD COUNT 9.5 X10'3 (4.5-11.0)
[2020-07-15 06:25] LABS: ALANINE AMINOTRANSFERASE 36 U/L (12-78); ALBUMIN 2.9 G/DL (3.4-5.0); ALBUMIN/GLOBULIN RATIO 0.5 (1.1-1.5); ALKALINE PHOSPHATASE 71 IU/L (46-116); ANION GAP 15 (8-16); ASPARTATE AMINO TRANSFERASE 48 U/L (10-37); BILIRUBIN,TOTAL 0.7 MG/DL (0.1-1.0); BLOOD UREA NITROGEN 45 MG/DL (7-18); BUN/CREATININE RATIO 7.6 (6.6-38.0); CALCIUM 9.6 MG/DL (8.5-10.1); CHLORIDE 90 MMOL/L (99-107); CREATININE 5.95 MG/DL (0.40-0.90); GLUCOSE 103 MG/DL (70-104); MAGNESIUM 2.2 MG/DL (1.5-2.4); PHOSPHORUS 6.3 MG/DL (2.3-4.5); POTASSIUM 3.7 MMOL/L (3.5-5.1); SODIUM 129 MMOL/L (135-145); TOTAL CARBON DIOXIDE 23.6 MMOL/L (24-32); TOTAL PROTEIN 8.3 G/DL (6.4-8.2); VANCOMYCIN,RANDOM 14.2 UG/ML; eGFR 7 ML/MIN
--- NOTE | 2020-07-15 06:26 | NUR ---
Patient in room PCU 3028. I have received report from JO ANN Hdez and had the opportunity to ask questions and assume patient care.
--- NOTE | 2020-07-15 06:31 | NUR ---
Patient in room PCU 3028. I have received report from jazmine ross and had the opportunity to ask questions and assume patient care.
[2020-07-15] MEDS: lactobacillus rhamnosus 10,000 MMU CELLS/CAPSULE PO SCH ×2 (07:16→19:40)
[2020-07-15] MEDS: docusate sod 100mg capsule PO SCH ×2 (07:16→19:40)
[2020-07-15] MEDS: heparin, porcine 5000 units/ml vial SQ SCH ×2 (07:17→19:40)
[2020-07-15] MEDS ORDERED: heparin 1,000unit/ml 10ml vial 10 ML IV ONE (08:00)
[2020-07-15] MEDS ORDERED: epoetin 20,000 units/ml inj IV ONE (08:00)
[2020-07-15] MEDS ORDERED: heparin 1,000 units/ml 10ml inj HE ONE ×2 (08:00)
[2020-07-15] MEDS ORDERED: normal saline 1000ml 250 ML IV PRN (08:00)
[2020-07-15 08:39] LABS: TOTAL CELLS COUNTED 100
[2020-07-15 08:40] LABS: ANISOCYTOSIS FEW; PLATELET ESTIMATE NORMAL; POIKILOCYTOSIS FEW
[2020-07-15 12:01] LABS: HBSAG SCREEN Negative (Negative)
--- NOTE | 2020-07-15 12:08 | NUR ---
Initial: Pt admit DX ESRD on HD, gastroenteritis improving, and fever w/ possible UTI per MD note. Pt PO increasing overall ~75% avg this admit w/ 100% breakfast this AM; double proteins BIDLD added to meals given HD needs. Dietary notified. LBM 07/13. YUSUF d/w RN regarding Phos binder w/ Phos 6.3 on HD if MD agreeable. No nutrition concerns at this time. Will continue to monitor. Rec: 1. continue renal diet; double proteins BIDLD 2. phos binder w/ meals if MD agreeable 3. bowel care per rx 4. wts w/ HD Addendum: 07/15/20 at [address] Amended: Links added.
[2020-07-15] MEDS: ibuprofen tablet 400 MG TABLET PO PRN (17:02)
--- NOTE | 2020-07-15 18:40 | NUR ---
Problems reprioritized. Patient report given, questions answered & plan of care reviewed with ABIGAIL CHERRY.
[2020-07-16] MEDS: oxyCODONE/APAP 10/325mg tablet PO PRN (00:53)
[2020-07-16 02:00] VITALS: BP 96/55
[2020-07-16] MEDS: piperacillin/tazo 3.375gm/50ml 50 ML IV SCH (02:38)
[2020-07-16] MEDS: VANCOMYCIN LEVEL IV SCH (03:00)
[2020-07-16] MEDS: ondansetron/PF 4mg/2ml inj IV PRN ×2 (05:12→10:53)
[2020-07-16 06:01] LABS: BASOPHILS % (AUTO) 0.3 % (0-1); EOSINOPHILS # (AUTO) 0.1 X10'3 (0-0.9); EOSINOPHILS % (AUTO) 1.4 % (0-6); HEMATOCRIT 31.7 % (35.0-45.0); HEMOGLOBIN 10.8 g/dl (12.0-16.0); LYMPHOCYTES # (AUTO) 1.2 X10'3 (1.1-4.8); LYMPHOCYTES % (AUTO) 12.4 % (21-51); MEAN CORPUSCULAR HEMOGLOBIN 32.2 PG (27.0-31.0); MEAN CORPUSCULAR HGB CONC 34.1 g/dL (33.0-36.5); MEAN CORPUSCULAR VOLUME 94.3 FL (78-98); MEAN PLATELET VOLUME 9.6 FL (7.4-10.4); MONOCYTES # (AUTO) 1.5 X10'3 (0-0.9); MONOCYTES % (AUTO) 15.9 % (2-12); NEUTROPHILS # (AUTO) 6.5 X10'3 (1.8-7.7); PLATELET COUNT 156 X10'3 (140-440); RED BLOOD COUNT 3.36 X10'6 (4.20-5.60); RED CELL DISTRIBUTION WIDTH 15.3 % (11.5-14.5); WHITE BLOOD COUNT 9.3 X10'3 (4.5-11.0)
[2020-07-16 06:10] VITALS: BP 105/72
[2020-07-16 06:17] LABS: ALANINE AMINOTRANSFERASE 35 U/L (12-78); ALBUMIN 2.6 G/DL (3.4-5.0); ALBUMIN/GLOBULIN RATIO 0.5 (1.1-1.5); ALKALINE PHOSPHATASE 79 IU/L (46-116); ANION GAP 13 (8-16); ASPARTATE AMINO TRANSFERASE 38 U/L (10-37); BILIRUBIN,TOTAL 0.7 MG/DL (0.1-1.0); BLOOD UREA NITROGEN 38 MG/DL (7-18); BUN/CREATININE RATIO 7.3 (6.6-38.0); CALCIUM 9.5 MG/DL (8.5-10.1); CHLORIDE 93 MMOL/L (99-107); CREATININE 5.21 MG/DL (0.40-0.90); GLUCOSE 104 MG/DL (70-104); MAGNESIUM 2.3 MG/DL (1.5-2.4); PHOSPHORUS 4.7 MG/DL (2.3-4.5); POTASSIUM 3.7 MMOL/L (3.5-5.1); SODIUM 131 MMOL/L (135-145); TOTAL CARBON DIOXIDE 25.2 MMOL/L (24-32); TOTAL PROTEIN 7.9 G/DL (6.4-8.2); VANCOMYCIN,RANDOM 10.2 UG/ML; eGFR 9 ML/MIN
--- NOTE | 2020-07-16 06:35 | NUR ---
Problems reprioritized. Patient report given, questions answered & plan of care reviewed with Barbara CHERRY. Addendum: 07/16/20 at 0635 by Shima Leger RN Amended: Links added.
[2020-07-16] MEDS ORDERED: vancomycin/NS 1 GM ADD-VANTAGE 250 ML IV ONE (06:50)
--- NOTE | 2020-07-16 07:00 | NUR ---
Patient in room PCU 3028. I have received report from Shima CHERRY and had the opportunity to ask questions and assume patient care.
--- NOTE | 2020-07-16 07:47 | NUR ---
Lab result: Positive blood cultures drawn 07/15@ 1414. Positive gram cocci in clusters. Aerobic bottle. 4th positive set of BC. Notified primary RN Barbara.
[2020-07-16] MEDS: docusate sod 100mg capsule PO SCH ×2 (09:05→20:14)
[2020-07-16] MEDS: lactobacillus rhamnosus 10,000 MMU CELLS/CAPSULE PO SCH ×2 (09:05→20:14)
[2020-07-16 10:00] VITALS: BP 108/57
[2020-07-16] MEDS: heparin, porcine 5000 units/ml vial SQ SCH ×2 (11:16→20:14)
[2020-07-16] MEDS ORDERED: ondansetron/PF 4mg/2ml inj IV PRN (12:05)
[2020-07-16] MEDS ORDERED: morphine 2 MG/ML inj. syringe IV PRN (12:05)
[2020-07-16] MEDS ORDERED: morphine 4 MG/ML inj SYRINge IV PRN (12:05)
[2020-07-16 12:48] LABS: GASTRIC OCCULT BLOOD POSITIVE (Neg)
[2020-07-16] MEDS: pantoprazole 40 MG vial IV SCH ×2 (13:00→20:14)
[2020-07-16] MEDS ORDERED: LORazepam 1 MG tablet PO ONE (13:20)
[2020-07-16 15:00] VITALS: BP 97/57
[2020-07-16] MEDS: ceFAZolin/D5W- 1GM premix 50 ML IV SCH (17:56)
[2020-07-16 18:00] VITALS: BP 111/69
--- NOTE | 2020-07-16 18:30 | NUR ---
Patient in room PCU 3028. I have received report from Barbara CHERRY and had the opportunity to ask questions and assume patient care.
--- NOTE | 2020-07-16 18:49 | NUR ---
Patient report given to TRAY
[2020-07-16 22:00] VITALS: BP 152/87
[2020-07-17 02:00] VITALS: BP 125/74
[2020-07-17 05:47] LABS: BASOPHILS # (AUTO) 0.1 X10'3 (0-0.2); BASOPHILS % (AUTO) 0.6 % (0-1); EOSINOPHILS # (AUTO) 0.1 X10'3 (0-0.9); EOSINOPHILS % (AUTO) 1.7 % (0-6); HEMATOCRIT 28.2 % (35.0-45.0); HEMOGLOBIN 9.6 g/dl (12.0-16.0); LYMPHOCYTES % (AUTO) 12.3 % (21-51); MEAN CORPUSCULAR HEMOGLOBIN 32.1 PG (27.0-31.0); MEAN CORPUSCULAR HGB CONC 34.2 g/dL (33.0-36.5); MEAN CORPUSCULAR VOLUME 93.9 FL (78-98); MEAN PLATELET VOLUME 9.4 FL (7.4-10.4); MONOCYTES # (AUTO) 1.1 X10'3 (0-0.9); MONOCYTES % (AUTO) 13.1 % (2-12); NEUTROPHILS # (AUTO) 6.1 X10'3 (1.8-7.7); NEUTROPHILS % (AUTO) 72.3 % (42-75); PLATELET COUNT 177 X10'3 (140-440); RED BLOOD COUNT 3.01 X10'6 (4.20-5.60); RED CELL DISTRIBUTION WIDTH 15.8 % (11.5-14.5); WHITE BLOOD COUNT 8.5 X10'3 (4.5-11.0)
[2020-07-17 05:56] LABS: ALANINE AMINOTRANSFERASE 28 U/L (12-78); ALBUMIN 2.1 G/DL (3.4-5.0); ALBUMIN/GLOBULIN RATIO 0.4 (1.1-1.5); ALKALINE PHOSPHATASE 103 IU/L (46-116); ANION GAP 15 (8-16); ASPARTATE AMINO TRANSFERASE 29 U/L (10-37); BILIRUBIN,TOTAL 0.8 MG/DL (0.1-1.0); BLOOD UREA NITROGEN 56 MG/DL (7-18); BUN/CREATININE RATIO 7.7 (6.6-38.0); CALCIUM 8.9 MG/DL (8.5-10.1); CHLORIDE 94 MMOL/L (99-107); CREATININE 7.29 MG/DL (0.40-0.90); GLUCOSE 108 MG/DL (70-104); MAGNESIUM 2.2 MG/DL (1.5-2.4); PHOSPHORUS 4.8 MG/DL (2.3-4.5); POTASSIUM 3.2 MMOL/L (3.5-5.1); SODIUM 131 MMOL/L (135-145); TOTAL CARBON DIOXIDE 22.2 MMOL/L (24-32); TOTAL PROTEIN 7.1 G/DL (6.4-8.2); eGFR 6 ML/MIN
[2020-07-17 06:00] VITALS: BP 103/68
--- NOTE | 2020-07-17 06:26 | NUR ---
Problems reprioritized. Patient report given, questions answered & plan of care reviewed with Jhoan CHERRY.
--- NOTE | 2020-07-17 06:30 | NUR ---
Patient in room PCU 3028. I have received report from JO ANN Reyes and had the opportunity to ask questions and assume patient care.
[2020-07-17] MEDS: heparin, porcine 5000 units/ml vial SQ SCH ×3 (08:00→19:06)
[2020-07-17] MEDS: lactobacillus rhamnosus 10,000 MMU CELLS/CAPSULE PO SCH ×2 (08:08→19:07)
[2020-07-17] MEDS: docusate sod 100mg capsule PO SCH ×2 (08:08→19:08)
[2020-07-17] MEDS: ceFAZolin/D5W- 1GM premix 50 ML IV SCH (08:09)
[2020-07-17] MEDS: pantoprazole 40 MG vial IV SCH (08:09)
--- NOTE | 2020-07-17 09:47 | NUR ---
Patient having tarry stool and bloody emesis. Held Heparin will ask MD what they want.
[2020-07-17 11:00] VITALS: BP 124/96
[2020-07-17 15:00] VITALS: BP 133/79
[2020-07-17] MEDS ORDERED: sucralfate 1 gm tablet PO SCH (16:00)
[2020-07-17 18:00] VITALS: BP 105/73
--- NOTE | 2020-07-17 18:02 | NUR ---
Problems reprioritized. Patient report given, questions answered & plan of care reviewed with JO ANN Page.
--- NOTE | 2020-07-17 18:20 | NUR ---
Patient in room PCU 3028. I have received report from Jhoan CHERRY and had the opportunity to ask questions and assume patient care.
[2020-07-17] MEDS: pantoprazole 40mg Tablet.DR PO SCH (19:07)
[2020-07-17 22:00] VITALS: BP 102/58
[2020-07-18 02:00] VITALS: BP 122/66
[2020-07-18 06:07] LABS: ANION GAP 16 (8-16); BILIRUBIN,TOTAL 0.5 MG/DL (0.1-1.0); BLOOD UREA NITROGEN 66 MG/DL (7-18); BUN/CREATININE RATIO 7.4 (6.6-38.0); CALCIUM 9.1 MG/DL (8.5-10.1); CHLORIDE 92 MMOL/L (99-107); GLUCOSE 91 MG/DL (70-104); MAGNESIUM 2.4 MG/DL (1.5-2.4); PHOSPHORUS 5.5 MG/DL (2.3-4.5); POTASSIUM 3.7 MMOL/L (3.5-5.1); SODIUM 129 MMOL/L (135-145); TOTAL CARBON DIOXIDE 21.1 MMOL/L (24-32); TOTAL PROTEIN 7.6 G/DL (6.4-8.2); eGFR 5 ML/MIN
[2020-07-18 06:08] LABS: ALANINE AMINOTRANSFERASE 19 U/L (12-78); ALBUMIN 2.1 G/DL (3.4-5.0); ALBUMIN/GLOBULIN RATIO 0.4 (1.1-1.5); ALKALINE PHOSPHATASE 104 IU/L (46-116); ASPARTATE AMINO TRANSFERASE 24 U/L (10-37)
[2020-07-18 06:09] LABS: BASOPHILS % (AUTO) 0.4 % (0-1); EOSINOPHILS # (AUTO) 0.2 X10'3 (0-0.9); EOSINOPHILS % (AUTO) 2.1 % (0-6); HEMATOCRIT 31.1 % (35.0-45.0); HEMOGLOBIN 10.7 g/dl (12.0-16.0); LYMPHOCYTES # (AUTO) 1.7 X10'3 (1.1-4.8); LYMPHOCYTES % (AUTO) 17.9 % (21-51); MEAN CORPUSCULAR HEMOGLOBIN 32.4 PG (27.0-31.0); MEAN CORPUSCULAR HGB CONC 34.6 g/dL (33.0-36.5); MEAN CORPUSCULAR VOLUME 93.6 FL (78-98); MEAN PLATELET VOLUME 9.1 FL (7.4-10.4); MONOCYTES # (AUTO) 1.4 X10'3 (0-0.9); MONOCYTES % (AUTO) 14.7 % (2-12); NEUTROPHILS # (AUTO) 6.1 X10'3 (1.8-7.7); NEUTROPHILS % (AUTO) 64.9 % (42-75); PLATELET COUNT 234 X10'3 (140-440); RED BLOOD COUNT 3.32 X10'6 (4.20-5.60); RED CELL DISTRIBUTION WIDTH 15.7 % (11.5-14.5); WHITE BLOOD COUNT 9.4 X10'3 (4.5-11.0)
--- NOTE | 2020-07-18 07:01 | NUR ---
Problems reprioritized. Patient report given, questions answered & plan of care reviewed with Ophelia CHERRY.
[2020-07-18 07:49] LABS: ANISOCYTOSIS 1+; HYPERSEGMENTED NEUTROPHILS FEW; PLATELET ESTIMATE NORMAL; TOTAL CELLS COUNTED 100
[2020-07-18 07:50] LABS: HYPOCHROMASIA 1+; POLYCHROMASIA 1+
[2020-07-18] MEDS: docusate sod 100mg capsule PO SCH ×2 (08:00→20:00)
[2020-07-18] MEDS: heparin, porcine 5000 units/ml vial SQ SCH ×2 (08:00→20:37)
[2020-07-18 09:32] VITALS: BP 139/65
[2020-07-18] MEDS: ceFAZolin/D5W- 1GM premix 50 ML IV SCH (09:41)
[2020-07-18] MEDS: pantoprazole 40mg Tablet.DR PO SCH (09:42)
[2020-07-18] MEDS: lactobacillus rhamnosus 10,000 MMU CELLS/CAPSULE PO SCH ×2 (09:42→20:36)
[2020-07-18] MEDS: HYDROcodone/acetaminophen 10/325mg tab PO PRN ×2 (09:43→20:44)
--- NOTE | 2020-07-18 10:46 | NUR ---
Rm 3028A, Moises. Pt has MRI to be done, please call. also Pt in 3025B has MRI ordered.
[2020-07-18 11:00] VITALS: BP 136/71
[2020-07-18 15:00] VITALS: BP 136/60
[2020-07-18] MEDS: pantoprazole 40MG/NS 100ML BAG 100 ML IV SCH ×2 (15:40→20:37)
[2020-07-18] MEDS: calcium carbonate 500mg chew tablet PO PRN (15:40)
[2020-07-18 18:00] VITALS: BP 129/73
--- NOTE | 2020-07-18 18:08 | NUR ---
Patient in room PCU 3028. I have received report from Ophelia CHERRY and had the opportunity to ask questions and assume patient care.
--- NOTE | 2020-07-18 18:33 | NUR ---
Problems reprioritized. Patient report given, questions answered & plan of care reviewed with Camilo CHERRY.
[2020-07-18] MEDS: Melatonin 3mg tablet PO SCH (20:37)
[2020-07-18 22:00] VITALS: BP 96/55
[2020-07-19] VITALS (7 sets, daily range): BP systolic 97–132; BP diastolic 57–73
[2020-07-19] MEDS: pantoprazole 40MG/NS 100ML BAG 100 ML IV SCH ×3 (01:18→12:38)
[2020-07-19 05:43] LABS: BASOPHILS % (AUTO) 0.6 % (0-1); EOSINOPHILS # (AUTO) 0.2 X10'3 (0-0.9); EOSINOPHILS % (AUTO) 2.1 % (0-6); HEMOGLOBIN 9.2 g/dl (12.0-16.0); LYMPHOCYTES # (AUTO) 1.2 X10'3 (1.1-4.8); LYMPHOCYTES % (AUTO) 14.4 % (21-51); MEAN CORPUSCULAR HEMOGLOBIN 31.9 PG (27.0-31.0); MEAN CORPUSCULAR HGB CONC 34.2 g/dL (33.0-36.5); MEAN CORPUSCULAR VOLUME 93.4 FL (78-98); MEAN PLATELET VOLUME 8.8 FL (7.4-10.4); MONOCYTES % (AUTO) 12.7 % (2-12); NEUTROPHILS # (AUTO) 5.7 X10'3 (1.8-7.7); NEUTROPHILS % (AUTO) 70.2 % (42-75); PLATELET COUNT 248 X10'3 (140-440); RED BLOOD COUNT 2.89 X10'6 (4.20-5.60); RED CELL DISTRIBUTION WIDTH 15.7 % (11.5-14.5); WHITE BLOOD COUNT 8.1 X10'3 (4.5-11.0)
[2020-07-19 05:48] LABS: ALANINE AMINOTRANSFERASE 13 U/L (12-78); ALBUMIN 2.1 G/DL (3.4-5.0); ALBUMIN/GLOBULIN RATIO 0.4 (1.1-1.5); ALKALINE PHOSPHATASE 90 IU/L (46-116); ANION GAP 17 (8-16); ASPARTATE AMINO TRANSFERASE 19 U/L (10-37); BILIRUBIN,TOTAL 0.7 MG/DL (0.1-1.0); BLOOD UREA NITROGEN 70 MG/DL (7-18); BUN/CREATININE RATIO 7.1 (6.6-38.0); CALCIUM 8.9 MG/DL (8.5-10.1); CHLORIDE 92 MMOL/L (99-107); CREATININE 9.82 MG/DL (0.40-0.90); GLUCOSE 101 MG/DL (70-104); MAGNESIUM 2.3 MG/DL (1.5-2.4); PHOSPHORUS 6.2 MG/DL (2.3-4.5); POTASSIUM 3.5 MMOL/L (3.5-5.1); SODIUM 129 MMOL/L (135-145); TOTAL CARBON DIOXIDE 20.3 MMOL/L (24-32); TOTAL PROTEIN 7.1 G/DL (6.4-8.2); eGFR 4 ML/MIN
--- NOTE | 2020-07-19 06:15 | NUR ---
Problems reprioritized. Patient report given, questions answered & plan of care reviewed with Ophelia CHERRY.
--- NOTE | 2020-07-19 06:33 | NUR ---
Patient in room PCU 3028. I have received report from Camilo CHERRY and had the opportunity to ask questions and assume patient care. Patient resting in bed, protonix running, offers no complaints, will continue to monitor.
[2020-07-19] MEDS: docusate sod 100mg capsule PO SCH ×2 (08:00→19:52)
[2020-07-19 08:56] LABS: TOTAL CELLS COUNTED 100
[2020-07-19 08:57] LABS: PLATELET ESTIMATE NORMAL
[2020-07-19 08:58] LABS: POLYCHROMASIA FEW; TOXIC GRANULATION 1+
[2020-07-19 08:59] LABS: HYPOCHROMASIA 1+
[2020-07-19 09:00] LABS: HYPERSEGMENTED NEUTROPHILS FEW
[2020-07-19] MEDS: ceFAZolin/D5W- 1GM premix 50 ML IV SCH (09:05)
[2020-07-19] MEDS: lactobacillus rhamnosus 10,000 MMU CELLS/CAPSULE PO SCH ×2 (09:05→19:45)
[2020-07-19] MEDS: heparin, porcine 5000 units/ml vial SQ SCH ×2 (09:06→19:49)
[2020-07-19] MEDS: calcium carbonate 500mg chew tablet PO PRN (12:41)
[2020-07-19] MEDS ORDERED: fentaNYL/PF 50MCG/1 ML 2ML syringe ONE (13:38)
[2020-07-19] MEDS ORDERED: heparin 1,000unit/ml 10ml vial 10 ML ONE (13:38)
[2020-07-19] MEDS ORDERED: LIDOcaine 1%/PF 5ML 10 MG/ML VIAL ONE (13:38)
--- NOTE | 2020-07-19 14:05 | NUR ---
Patient down to angio for TDC placement
[2020-07-19] MEDS: pantoprazole 40 MG vial IV SCH ×2 (16:04→19:46)
--- NOTE | 2020-07-19 18:05 | NUR ---
Patient in room PCU 3028. I have received report from Ophelia CHERRY and had the opportunity to ask questions and assume patient care.
--- NOTE | 2020-07-19 18:16 | NUR ---
Problems reprioritized. Patient report given, questions answered & plan of care reviewed with Camilo CHERRY.
[2020-07-19] MEDS: Melatonin 3mg tablet PO SCH (20:58)
[2020-07-20 02:00] VITALS: BP 133/70
[2020-07-20 05:10] LABS: BASOPHILS % (AUTO) 0.4 % (0-1); EOSINOPHILS # (AUTO) 0.1 X10'3 (0-0.9); EOSINOPHILS % (AUTO) 1.1 % (0-6); HEMATOCRIT 29.2 % (35.0-45.0); LYMPHOCYTES # (AUTO) 1.7 X10'3 (1.1-4.8); LYMPHOCYTES % (AUTO) 15.7 % (21-51); MEAN CORPUSCULAR HEMOGLOBIN 32.3 PG (27.0-31.0); MEAN CORPUSCULAR HGB CONC 34.4 g/dL (33.0-36.5); MEAN PLATELET VOLUME 8.3 FL (7.4-10.4); MONOCYTES # (AUTO) 1.1 X10'3 (0-0.9); MONOCYTES % (AUTO) 10.2 % (2-12); NEUTROPHILS # (AUTO) 7.8 X10'3 (1.8-7.7); NEUTROPHILS % (AUTO) 72.6 % (42-75); PLATELET COUNT 313 X10'3 (140-440); RED CELL DISTRIBUTION WIDTH 15.7 % (11.5-14.5); WHITE BLOOD COUNT 10.7 X10'3 (4.5-11.0)
[2020-07-20 05:24] LABS: ALANINE AMINOTRANSFERASE 11 U/L (12-78); ALBUMIN 2.2 G/DL (3.4-5.0); ALBUMIN/GLOBULIN RATIO 0.4 (1.1-1.5); ALKALINE PHOSPHATASE 122 IU/L (46-116); ANION GAP 17 (8-16); ASPARTATE AMINO TRANSFERASE 23 U/L (10-37); BILIRUBIN,TOTAL 0.5 MG/DL (0.1-1.0); BLOOD UREA NITROGEN 74 MG/DL (7-18); BUN/CREATININE RATIO 6.8 (6.6-38.0); CALCIUM 9.2 MG/DL (8.5-10.1); CHLORIDE 96 MMOL/L (99-107); GLUCOSE 110 MG/DL (70-104); MAGNESIUM 2.4 MG/DL (1.5-2.4); PHOSPHORUS 6.6 MG/DL (2.3-4.5); SODIUM 131 MMOL/L (135-145); TOTAL CARBON DIOXIDE 17.9 MMOL/L (24-32); TOTAL PROTEIN 7.9 G/DL (6.4-8.2); eGFR 4 ML/MIN
--- NOTE | 2020-07-20 06:31 | NUR ---
Problems reprioritized. Patient report given, questions answered & plan of care reviewed with Elizabeth CHERRY.
[2020-07-20 07:00] VITALS: BP 116/70
[2020-07-20] MEDS ORDERED: epoetin 20,000 units/ml inj IV ONE (08:00)
[2020-07-20] MEDS ORDERED: heparin 1,000unit/ml 10ml vial 10 ML IV ONE (08:00)
[2020-07-20] MEDS ORDERED: heparin 1,000 units/ml 10ml inj HE ONE ×2 (08:00)
[2020-07-20] MEDS ORDERED: normal saline 1000ml 250 ML IV PRN (08:00)
[2020-07-20] MEDS: pantoprazole 40 MG vial IV SCH ×2 (09:13→21:42)
[2020-07-20] MEDS: lactobacillus rhamnosus 10,000 MMU CELLS/CAPSULE PO SCH ×2 (09:13→21:43)
[2020-07-20] MEDS: docusate sod 100mg capsule PO SCH ×2 (09:13→20:00)
[2020-07-20] MEDS: heparin, porcine 5000 units/ml vial SQ SCH ×2 (09:14→21:45)
--- NOTE | 2020-07-20 09:14 | NUR ---
Administered 2mg IV morphine. Two patient identifiers used. Administration did not safe in the computer.
[2020-07-20] MEDS: ceFAZolin/D5W- 1GM premix 50 ML IV SCH (11:35)
[2020-07-20 15:00] VITALS: BP 135/72
[2020-07-20] MEDS: ibuprofen tablet 400 MG TABLET PO PRN (16:09)
[2020-07-20 18:00] VITALS: BP 108/72
--- NOTE | 2020-07-20 18:30 | NUR ---
Patient in room PCU 3028. I have received report from Elizabeth CHERRY and had the opportunity to ask questions and assume patient care.
--- NOTE | 2020-07-20 18:33 | NUR ---
Problems reprioritized. Patient report given, questions answered & plan of care reviewed with JO ANN Talbert. Patient stable at transfer of care.
--- NOTE | 2020-07-20 18:33 | NUR ---
[place]rientee documentation: I have reviewed and agree with all interventions, assessments performed and documented by JO ANN Ronquillo. [place] Medication Administration: For this medication-pass time frame, all medication were reviewed, dispensed, administered and documented per hospital policy by JO ANN Ronquillo.
[2020-07-20] MEDS: Melatonin 3mg tablet PO SCH (21:43)
[2020-07-20 22:00] VITALS: BP 128/66
[2020-07-21 02:00] VITALS: BP 134/86
--- NOTE | 2020-07-21 06:00 | NUR ---
Patient in room PCU 3028. I have received report from JO ANN Talbert and had the opportunity to ask questions and assume patient care. Pt resting comfortably at change of shift.
--- NOTE | 2020-07-21 06:30 | NUR ---
Problems reprioritized. Patient report given, questions answered & plan of care reviewed with Isabel CHERRY and Shima CHERRY.
[2020-07-21 07:00] VITALS: BP 147/71
[2020-07-21] MEDS: ceFAZolin/D5W- 1GM premix 50 ML IV SCH (07:22)
[2020-07-21] MEDS: lactobacillus rhamnosus 10,000 MMU CELLS/CAPSULE PO SCH (07:22)
[2020-07-21] MEDS: docusate sod 100mg capsule PO SCH (07:22)
[2020-07-21] MEDS: pantoprazole 40 MG vial IV SCH (07:22)
[2020-07-21] MEDS ORDERED: heparin 1,000unit/ml 10ml vial 10 ML IV ONE (07:30)
[2020-07-21] MEDS ORDERED: albumin (human) 25% 100ml IV 100 ML IV PRN (07:30)
[2020-07-21] MEDS ORDERED: heparin 1,000 units/ml 10ml inj IV ONE (07:30)
[2020-07-21] MEDS ORDERED: heparin 1,000 units/ml 10ml inj HE ONE ×2 (07:30)
[2020-07-21] MEDS ORDERED: epoetin 20,000 units/ml inj IV ONE (07:30)
[2020-07-21] MEDS: ibuprofen tablet 400 MG TABLET PO PRN (07:35)
[2020-07-21 11:00] VITALS: BP 97/66
[2020-07-21] MEDS: heparin, porcine 5000 units/ml vial SQ SCH (11:26)
[2020-07-21 12:28] LABS: HEMOGLOBIN 9.2 g/dl (12.0-16.0); MEAN CORPUSCULAR HGB CONC 34.1 g/dL (33.0-36.5); MEAN CORPUSCULAR VOLUME 93.7 FL (78-98); MEAN PLATELET VOLUME 8.3 FL (7.4-10.4); PLATELET COUNT 332 X10'3 (140-440); RED BLOOD COUNT 2.88 X10'6 (4.20-5.60); RED CELL DISTRIBUTION WIDTH 15.3 % (11.5-14.5); WHITE BLOOD COUNT 10.5 X10'3 (4.5-11.0)
--- NOTE | 2020-07-21 13:41 | NUR ---
Reassessment: Gastroenteritis resolved per MD note. Pt continues on renal diet with slightly fluctuating PO intake though averaging 75-100% while receiving double protein BIDLD. Pt meeting estimated nutrient needs at this time with adequate protein intake to meet the demands of HD. Patient's Phos remains elevated at this time, up to 6.6 as of 07/20. D/w MD recommendation for routine Phos binder given increasing trend in Phos. Pt to begin Renvela per . LBM 07/20. No further nutrition intervention warranted at this time. Will continue to follow. Rec: 1. continue renal diet; double protein BIDLD 2. phos binder with meals, d/w MD 3. bowel care per rx 4. Scaled weights per rx Addendum: 07/21/20 at [address] Amended: Links added.
[2020-07-21] MEDS ORDERED: SEVE800T8 PO (14:58)
[2020-07-21] MEDS ORDERED: LACT1CAP26 PO (14:58)
[2020-07-21 15:00] VITALS: BP 97/74
--- NOTE | 2020-07-21 17:00 | NUR ---
Patient is stable for discharge per MD orders. All discharge instructions reviewed with patient and all questions answered. New prescriptions called into [facility]. Two IVs DC, cannulas intact. ceramic tile setter discontinued, notified telecommunications repairer. Belongings collected and sent with patient. Daughter picked her up. Wheeled to lobby by staff.
[2020-07-21] MEDS ORDERED: sevelamer carbonate 800mg tablet PO SCH (18:00)
[2020-07-21] MEDS ORDERED: pantoprazole 40mg Tablet.DR PO SCH (20:00)
== END 2020-07-21 16:59 | disposition home or self-care (01) | DRG 314 ==
LOC: ER 12:06 → ED HOLD 14:19 → PCU 3S 15:13
PROVIDERS: ADMIT Internal Medicine Critical Care Medicine; ATTEND Internal Medicine Critical Care Medicine
PROC: 02HV33Z Insertion of Infusion Device into Superior Vena Cava, Percutaneous Approach (ICD-10-PCS; principal; 2020-07-13)
PROC: 5A1D70Z Performance of Urinary Filtration, Intermittent, Less than 6 Hours Per Day (ICD-10-PCS; 2020-07-13)
PROC: 5A1D70Z Performance of Urinary Filtration, Intermittent, Less than 6 Hours Per Day (ICD-10-PCS; 2020-07-15)
PROC: 05PYX3Z Removal of Infusion Device from Upper Vein, External Approach (ICD-10-PCS; 2020-07-16)
PROC: 5A1D70Z Performance of Urinary Filtration, Intermittent, Less than 6 Hours Per Day (ICD-10-PCS; 2020-07-20)
PROC: 5A1D70Z Performance of Urinary Filtration, Intermittent, Less than 6 Hours Per Day (ICD-10-PCS; 2020-07-21)
DX: T80.218A Other infection due to central venous catheter, initial encounter (principal); A41.9 Sepsis, unspecified organism; N18.6 End stage renal disease; Z68.42 Body mass index [BMI] 45.0-49.9, adult; E87.1 Hypo-osmolality and hyponatremia; K52.9 Noninfective gastroenteritis and colitis, unspecified; Z20.828 Contact with and (suspected) exposure to other viral communicable diseases; E66.9 Obesity, unspecified; G47.30 Sleep apnea, unspecified; Z96.653 Presence of artificial knee joint, bilateral; K29.00 Acute gastritis without bleeding; Y82.8 Other medical devices associated with adverse incidents; Y92.89 Other specified places as the place of occurrence of the external cause; Z99.2 Dependence on renal dialysis; Z79.899 Other long term (current) drug therapy
CPT/HCPCS: 36415; 36558; 36589; 71045; 72146; 72148; 76937; 77001; 80053; 80202; 81001; 82271; 83605; 83735; 84100; 84145; 84484; 85007; 85025; 85027; 87040; 87077; 87081; 87088; 87186; 87340; 87635; 90935; 93005; 93306; 93930; 93970; 97110; 97116; 97161; 97530; 99285; A9270; C1750; C1769; C1894; C9113; C9803; G0378; J0690; J1644; J2270; J2405; J2543; J3010; J3370; Q4081

== ENCOUNTER 2020-08-25 06:22 | Day surgery (SDC) | payer MEDICARE, MEDICAID ==
[~2020-08-25] VITALS: Ht 157.5 cm; Wt 115.0 kg
[~2020-08-25 06:22] MED LIST changes: -FA/V1TAB PO; +FOLI1TAB34 PO; +LACT1CAP26 PO; +SEVE800T8 PO
[2020-08-25] MEDS ORDERED: SEVE800T7 (06:48)
[2020-08-25] MEDS ORDERED: normal saline 1000ml 1,000 ML IV SCH (06:50)
[2020-08-25 07:02] VITALS: BP 138/96
[2020-08-25] MEDS ORDERED: ceFAZolin 2gm in dextrose, iso 50 ML IV ONE (08:15)
[2020-08-25] MEDS ORDERED: LIDOcaine 1%/PF 5ML 10 MG/ML VIAL ONE (08:22)
[2020-08-25] MEDS ORDERED: midazolam 2 mg/2 ml injection ONE (08:22)
[2020-08-25] MEDS ORDERED: fentaNYL/PF 50MCG/1 ML 2ML syringe ONE (08:22)
[2020-08-25] MEDS ORDERED: heparin 1,000unit/ml 10ml vial 10 ML ONE (08:22)
[2020-08-25 09:27] VITALS: BP 160/96
[2020-08-25 09:45] VITALS: BP 164/93
[2020-08-25 10:00] VITALS: BP 137/70
[2020-08-25 10:15] VITALS: BP 134/72
== END 2020-08-25 10:40 | disposition home or self-care (01) ==
LOC: SSTAY O 06:22
PROVIDERS: ATTEND Radiology Diagnostic Radiology
DX: T82.49XA Other complication of vascular dialysis catheter, initial encounter (principal); N18.9 Chronic kidney disease, unspecified; E66.9 Obesity, unspecified; Z68.42 Body mass index [BMI] 45.0-49.9, adult; Y83.8 Other surgical procedures as the cause of abnormal reaction of the patient, or of later complication, without mention of misadventure at the time of the procedure; Y92.89 Other specified places as the place of occurrence of the external cause
CPT/HCPCS: 36581; 77001; 99152; C1750; C1769; J1644; J2250; J3010; 77011; 99153; A9270

== ENCOUNTER 2020-11-22 21:22 | Emergency (ER) | payer MEDICARE, MEDICAID ==
[~2020-11-22] VITALS: Ht 157.5 cm; Wt 117.3 kg
[~2020-11-22 21:22] MED LIST changes: -LACT1CAP26 PO; +SEVE800T7; -SEVE800T8 PO
[2020-11-22 23:32] VITALS: BP 127/80
== END 2020-11-22 23:34 | disposition home or self-care (01) ==
LOC: ER 21:23
DX: T85.9XXA Unspecified complication of internal prosthetic device, implant and graft, initial encounter (principal); I12.0 Hypertensive chronic kidney disease with stage 5 chronic kidney disease or end stage renal disease; N18.6 End stage renal disease; Z99.2 Dependence on renal dialysis; Z79.899 Other long term (current) drug therapy; Y83.8 Other surgical procedures as the cause of abnormal reaction of the patient, or of later complication, without mention of misadventure at the time of the procedure; Y82.8 Other medical devices associated with adverse incidents
CPT/HCPCS: 71045; 99283

== ENCOUNTER 2020-11-24 10:48 | Day surgery (SDC) | payer MEDICARE, MEDICAID ==
[~2020-11-24] VITALS: Ht 157.5 cm; Wt 119.0 kg
[2020-11-24] MEDS ORDERED: normal saline 1000ml 1,000 ML IV PRN (11:10)
[2020-11-24 11:27] VITALS: BP 128/66
[2020-11-24 11:36] LABS: ALBUMIN 3.7 G/DL (3.4-5.0); ANION GAP 12 (8-16); BLOOD UREA NITROGEN 66 MG/DL (7-18); CALCIUM 9.3 MG/DL (8.5-10.1); CHLORIDE 99 MMOL/L (99-107); CREATININE 2.87 MG/DL (0.40-0.90); GLUCOSE 95 MG/DL (70-104); SODIUM 139 MMOL/L (135-145); TOTAL CARBON DIOXIDE 27.7 MMOL/L (24-32); eGFR 17 ML/MIN
[2020-11-24] MEDS ORDERED: heparin 1,000unit/ml 10ml vial 10 ML ONE (13:30)
[2020-11-24] MEDS ORDERED: LIDOcaine 1%/PF 5ML 10 MG/ML VIAL ONE (13:30)
[2020-11-24] MEDS ORDERED: midazolam 1 mg/ML 2ml injection ONE (13:31)
[2020-11-24] MEDS ORDERED: fentaNYL/PF 50MCG/1 ML 2ML syringe ONE (13:31)
[2020-11-24 14:30] VITALS: BP 150/111
[2020-11-24 14:45] VITALS: BP 163/117
[2020-11-24 15:00] VITALS: BP 162/93
[2020-11-24 15:15] VITALS: BP 159/90
== END 2020-11-24 16:15 | disposition home or self-care (01) ==
LOC: SSTAY O 10:48
PROVIDERS: ATTEND Radiology Diagnostic Radiology
DX: N18.6 End stage renal disease (principal); Z99.2 Dependence on renal dialysis; Z79.899 Other long term (current) drug therapy
CPT/HCPCS: 36415; 36558; 76937; 77001; 80048; 99152; 99153; C1750; C1769; C1894; J1644; J2250; J3010; J7030; A9270

== ENCOUNTER → 2021-01-19 | Day surgery (SDC) | payer MEDICARE, MEDICAID ==
[2021-01-19] VITALS (16 sets, daily range): BP systolic 113–149; BP diastolic 65–93
[~2021-01-19] VITALS: Ht 157.5 cm; Wt 119.0 kg
[~2021-01-19] MED LIST changes: +BUPIVAcaine/PF 2.5 mg/ml (0.25%) 30ml vial ONE; +CEPH250C PO; -SEVE800T7; +SEVE800T7 PO; +ceFAZolin 2gm in dextrose, iso 50 ML IV ONE; +ceFAZolin/D5W- 1GM premix 50 ML IV ONE; +famotidine 20mg tablet PO ONE; +fentaNYL/PF 50MCG/1 ML 2ML syringe ONE; +meperidine/PF 25mg/ml syringe IV PRN; +midazolam 1 mg/ML 2ml injection ONE; +morphine 2 MG/ML inj. syringe IV PRN; +morphine 4 MG/ML inj SYRINge IV PRN; +normal saline 1000ml 1,000 ML IV SCH; +ondansetron/PF 4mg/2ml inj IV PRN; +proCHLORperazine 10 MG/2 ml inj IV PRN; +propofol inj 20 ML IV ONE; +ringers solution, lacted 1,000 ML IV SCH; +sevoflurane 250ml liquid IH ONE; +traMADol 50MG tablet PO ONE
[2021-01-19 06:31] LABS: BASOPHILS % (AUTO) 0.5 % (0-1); EOSINOPHILS # (AUTO) 0.2 X10'3 (0-0.9); EOSINOPHILS % (AUTO) 3.1 % (0-6); LYMPHOCYTES # (AUTO) 2.1 X10'3 (1.1-4.8); LYMPHOCYTES % (AUTO) 35.8 % (21-51); MEAN CORPUSCULAR HEMOGLOBIN 33.5 PG (27.0-31.0); MEAN CORPUSCULAR HGB CONC 34.7 g/dL (33.0-36.5); MEAN CORPUSCULAR VOLUME 96.6 FL (78-98); MEAN PLATELET VOLUME 8.7 FL (7.4-10.4); MONOCYTES # (AUTO) 0.7 X10'3 (0-0.9); MONOCYTES % (AUTO) 11.7 % (2-12); NEUTROPHILS # (AUTO) 2.8 X10'3 (1.8-7.7); NEUTROPHILS % (AUTO) 48.9 % (42-75); PRE OP HEMATOCRIT 29.6 % (35.0-45.0); PRE OP PLATELET COUNT 192 X10'3 (140-440); RED BLOOD COUNT 3.06 X10'6 (4.20-5.60); RED CELL DISTRIBUTION WIDTH 13.5 % (11.5-14.5)
[2021-01-19 06:33] LABS: PRE OP HEMOGLOBIN 10.3 g/dL (12.0-16.0)
[2021-01-19 06:51] LABS: ALBUMIN 3.3 G/DL (3.4-5.0); ALBUMIN/GLOBULIN RATIO 0.8 (1.1-1.5); ALKALINE PHOSPHATASE 80 IU/L (46-116); BLOOD UREA NITROGEN 51 MG/DL (7-18); BUN/CREATININE RATIO 13.8 (6.6-38.0); CALCIUM 8.6 MG/DL (8.5-10.1); CHLORIDE 102 MMOL/L (99-107); PRE OP ALT 29 U/L (30-65); PRE OP ANION GAP 16 (8-16); PRE OP AST 19 U/L (10-37); PRE OP BILIRUB, TOTAL 0.4 MG/DL (0.0-1.0); PRE OP GLUCOSE 88 MG/DL (70-104); PRE OP SODIUM 142 MMOL/L (135-145); TOTAL CARBON DIOXIDE 24.5 MMOL/L (24-32); TOTAL PROTEIN 7.3 G/DL (6.4-8.2); eGFR 13 ML/MIN
[2021-01-19 06:55] LABS: PRE OP POTASSIUM 3.3 MMOL/L (3.4-5.1)
--- NOTE | 2021-01-19 08:53 | NUR ---
Received from OR via , accompanied by Anesthesiologist DR RODRIGUEZ and report given by Anesthesiolgist. PT PRESENTSE JACKELIN 20G LEFT HAND, VSS, SRESSING DRY AND INTACT. Addendum: 01/19/21 at 0855 by Sandra Kramer RN, RN Amended: Links added.
--- NOTE | 2021-01-19 10:45 | NUR ---
RADHA CARGO CALLED AT 0914. ETA 30 MINUTES. I CALLED RADHA CARGO BACK AND THEY REPORTED THEY SENT A ACID RECOVERY OPERATOR HERE TO [facility] PT ANDTHAT THEY WERE TOLD THE PT WAS NOT OUT OF THE OR, BY SOME UNKNOWN PERSON. THEY WILL BE SENDING A NEW ACID RECOVERY OPERATOR NOW TO [facility] PT. PER JARRED AT THE NEW ACID RECOVERY OPERATOR'S NAME IS PAT. Addendum: 01/19/21 at 1048 by Sandra Kramer RN, RN Amended: Links added.
--- NOTE | 2021-01-19 10:59 | NUR ---
ALL DISCHARGE CRITERIA HAS BEEN MET. VSS, PAIN AT A TOLERABLE LEVEL, VOIDING AND ABLE TO SAFELY AMBULATE AND TRANSFER SELF. IV TAKEN OUT WITHOUT ANY COMPLICATIONS. ALL DISCHARGE INSTRUCTIONS COVERED WITH PATIENT AND ALL QUESTIONS ANSWERED. PATIENT TAKEN OUT VIA WHEELCHAIR TO PERSONAL VEHICLE WHERE RADHA CAARGO DROVE PATIENT HOME.
== END | disposition home or self-care (01) ==
LOC: PAS 05:06
PROVIDERS: ATTEND Orthopaedic Surgery
DX: G56.01 Carpal tunnel syndrome, right upper limb (principal); G47.30 Sleep apnea, unspecified; Z79.899 Other long term (current) drug therapy; Z98.890 Other specified postprocedural states; Z96.653 Presence of artificial knee joint, bilateral; Z99.2 Dependence on renal dialysis
CPT/HCPCS: 36415; 64721; 80053; 85025; 87426; J0690; J2250; J2704; J3010; J3490; J7030; A4215; A4618; A6449; A7000

== ENCOUNTER 2021-06-03 08:01 | Emergency (ER) | payer MEDICARE, MEDICAID ==
[~2021-06-03] VITALS: Ht 157.5 cm; Wt 113.6 kg
[~2021-06-03 08:01] MED LIST changes: -BUPIVAcaine/PF 2.5 mg/ml (0.25%) 30ml vial ONE; -ceFAZolin 2gm in dextrose, iso 50 ML IV ONE; -ceFAZolin/D5W- 1GM premix 50 ML IV ONE; -famotidine 20mg tablet PO ONE; -fentaNYL/PF 50MCG/1 ML 2ML syringe ONE; -meperidine/PF 25mg/ml syringe IV PRN; -midazolam 1 mg/ML 2ml injection ONE; -morphine 2 MG/ML inj. syringe IV PRN; -morphine 4 MG/ML inj SYRINge IV PRN; -normal saline 1000ml 1,000 ML IV SCH; -ondansetron/PF 4mg/2ml inj IV PRN; -proCHLORperazine 10 MG/2 ml inj IV PRN; -propofol inj 20 ML IV ONE; -ringers solution, lacted 1,000 ML IV SCH; -sevoflurane 250ml liquid IH ONE; -traMADol 50MG tablet PO ONE
[2021-06-03 08:04] VITALS: BP 117/94
[2021-06-03] MEDS ORDERED: acetaminophen 325mg tablet PO ONE (09:05)
== END 2021-06-03 10:34 | disposition home or self-care (01) ==
LOC: ER 08:02
DX: R51.9 Headache, unspecified (principal); S09.90XA Unspecified injury of head, initial encounter; M54.2 Cervicalgia; S80.211A Abrasion, right knee, initial encounter; M25.512 Pain in left shoulder; I12.0 Hypertensive chronic kidney disease with stage 5 chronic kidney disease or end stage renal disease; N18.6 End stage renal disease; Z99.2 Dependence on renal dialysis; Z79.2 Long term (current) use of antibiotics; Z79.899 Other long term (current) drug therapy; W19.XXXA Unspecified fall, initial encounter; Y93.01 Activity, walking, marching and hiking; Y92.89 Other specified places as the place of occurrence of the external cause; Y99.8 Other external cause status
CPT/HCPCS: 70450; 72125; 73030; 99285

== ENCOUNTER 2021-10-18 14:01 | Day surgery (SDC) | payer MEDICARE, MEDICAID ==
[2021-10-17 12:07] LABS: BASOPHILS % (AUTO) 0.6 % (0-1); EOSINOPHILS # (AUTO) 0.1 X10'3 (0-0.9); EOSINOPHILS % (AUTO) 1.8 % (0-6); HEMOGLOBIN 11.5 g/dl (12.0-16.0); LYMPHOCYTES # (AUTO) 1.7 X10'3 (1.1-4.8); LYMPHOCYTES % (AUTO) 27.5 % (21-51); MEAN CORPUSCULAR HEMOGLOBIN 32.5 PG (27.0-31.0); MEAN CORPUSCULAR HGB CONC 33.7 g/dL (33.0-36.5); MEAN CORPUSCULAR VOLUME 96.4 FL (78-98); MEAN PLATELET VOLUME 9.4 FL (7.4-10.4); MONOCYTES # (AUTO) 0.6 X10'3 (0-0.9); MONOCYTES % (AUTO) 9.3 % (2-12); NEUTROPHILS # (AUTO) 3.7 X10'3 (1.8-7.7); NEUTROPHILS % (AUTO) 60.8 % (42-75); PLATELET COUNT 196 X10'3 (140-440); RED BLOOD COUNT 3.53 X10'6 (4.20-5.60); RED CELL DISTRIBUTION WIDTH 13.5 % (11.5-14.5); WHITE BLOOD COUNT 6.1 X10'3 (4.5-11.0)
[2021-10-17 12:19] LABS: APTT 27 SECONDS (22-32)
[2021-10-17 12:41] LABS: ALBUMIN 3.8 G/DL (3.4-5.0); ANION GAP 12 (8-16); BLOOD UREA NITROGEN 41 MG/DL (7-18); BUN/CREATININE RATIO 15.3 (6.6-38.0); CALCIUM 9.3 MG/DL (8.5-10.1); CHLORIDE 100 MMOL/L (99-107); CREATININE 2.68 MG/DL (0.40-0.90); GLUCOSE 92 MG/DL (70-104); POTASSIUM 3.6 MMOL/L (3.5-5.1); SODIUM 138 MMOL/L (135-145); eGFR 18 ML/MIN
[~2021-10-18] VITALS: Ht 157.5 cm; Wt 117.9 kg
[2021-10-18] VITALS (9 sets, daily range): BP systolic 147–186; BP diastolic 56–119
[2021-10-18] MEDS ORDERED: normal saline 1,000 ML IV SCH (14:20)
[2021-10-18] MEDS ORDERED: LORazepam 0.5 MG tablet PO PRN (14:20)
[2021-10-18] MEDS ORDERED: diphenhydrAMINE 25mg capsule PO PRN (14:20)
[2021-10-18] MEDS ORDERED: LIDOcaine 1% (10mg/ml)w/preservative injection 20ml MDV ONE (14:22)
[2021-10-18] MEDS ORDERED: verapamil 2.5 mg/ml inj IV ONE (14:22)
[2021-10-18] MEDS ORDERED: heparin 1,000unit/ml 10ml vial 10 ML ONE (14:22)
[2021-10-18] MEDS ORDERED: fentaNYL/PF 50MCG/1 ML 2ML syringe ONE (14:22)
[2021-10-18] MEDS ORDERED: midazolam 1 mg/ML 2ml injection ONE (14:22)
[2021-10-18] MEDS ORDERED: iohexol 350MG/ML 100ml bottle IV ONE (14:23)
[2021-10-18] MEDS ORDERED: nitroGLYCERIN-Tridil 50MG/D5W 250 ML IV ONE (14:23)
[2021-10-18 16:42] LABS: ISTAT HGB ART 9.9 g/dl (12.0-16.0); ISTAT Hct ART 29 %PCV (35-48); ISTAT O2 SATURATION ARTERIAL 99 % (95-98); ISTAT SOURCE ART
[2021-10-19 07:18] LABS: ISTAT Hct MIX 29 %PCV (35-48); ISTAT O2 SATURATION MIX VENOUS 75 % (60-80); ISTAT SOURCE VEN
[2021-10-19 07:18] LABS: ISTAT Hct MIX 36 %PCV (35-48); ISTAT O2 SATURATION MIX VENOUS 74 % (60-80); ISTAT SOURCE BLNK
== END 2021-10-18 19:55 | disposition home or self-care (01) ==
LOC: SSTAY O 14:01
PROVIDERS: ATTEND Internal Medicine Interventional Cardiology
DX: I35.0 Nonrheumatic aortic (valve) stenosis (principal); I12.9 Hypertensive chronic kidney disease with stage 1 through stage 4 chronic kidney disease, or unspecified chronic kidney disease; N18.9 Chronic kidney disease, unspecified; I65.29 Occlusion and stenosis of unspecified carotid artery; G47.33 Obstructive sleep apnea (adult) (pediatric); Z79.899 Other long term (current) drug therapy
CPT/HCPCS: 36415; 80048; 82803; 85014; 85025; 85610; 85730; 93005; 93456; 99152; 99153; C1751; C1760; C1769; C1894; J1644; J2250; J3010; J3490; J7030; Q0163; Q9967; A4620; A6258

== ENCOUNTER 2021-11-02 12:51 | Outpatient (CLI) | payer MEDICARE, MEDICAID ==
[~2021-11-02 12:51] MED LIST changes: -CEPH250C PO; -FOLI1TAB34 PO; -SEVE800T7 PO
[2021-11-02 13:24] LABS: BASOPHILS % (AUTO) 0.5 % (0-1); EOSINOPHILS # (AUTO) 0.1 X10'3 (0-0.9); EOSINOPHILS % (AUTO) 1.5 % (0-6); HEMATOCRIT 29.3 % (35.0-45.0); HEMOGLOBIN 9.8 g/dl (12.0-16.0); LYMPHOCYTES # (AUTO) 0.8 X10'3 (1.1-4.8); LYMPHOCYTES % (AUTO) 19.3 % (21-51); MEAN CORPUSCULAR HGB CONC 33.5 g/dL (33.0-36.5); MEAN CORPUSCULAR VOLUME 95.5 FL (78-98); MEAN PLATELET VOLUME 9.1 FL (7.4-10.4); MONOCYTES # (AUTO) 0.7 X10'3 (0-0.9); MONOCYTES % (AUTO) 17.8 % (2-12); NEUTROPHILS # (AUTO) 2.5 X10'3 (1.8-7.7); NEUTROPHILS % (AUTO) 60.9 % (42-75); PLATELET COUNT 157 X10'3 (140-440); RED BLOOD COUNT 3.07 X10'6 (4.20-5.60); RED CELL DISTRIBUTION WIDTH 14.5 % (11.5-14.5); WHITE BLOOD COUNT 4.2 X10'3 (4.5-11.0)
[2021-11-02 13:35] LABS: APTT 30 SECONDS (22-32)
[2021-11-02 13:52] LABS: ALANINE AMINOTRANSFERASE 52 U/L (12-78); ALBUMIN 3.5 G/DL (3.4-5.0); ALBUMIN/GLOBULIN RATIO 0.9 (1.1-1.5); ALKALINE PHOSPHATASE 84 IU/L (46-116); ANION GAP 11 (8-16); ASPARTATE AMINO TRANSFERASE 30 U/L (10-37); BILIRUBIN,TOTAL 0.6 MG/DL (0.1-1.0); BLOOD UREA NITROGEN 27 MG/DL (7-18); BUN/CREATININE RATIO 13.6 (6.6-38.0); CALCIUM 8.8 MG/DL (8.5-10.1); CHLORIDE 106 MMOL/L (99-107); CREATININE 1.99 MG/DL (0.40-0.90); GLUCOSE 82 MG/DL (70-104); POTASSIUM 3.8 MMOL/L (3.5-5.1); SODIUM 143 MMOL/L (135-145); TOTAL CARBON DIOXIDE 26.4 MMOL/L (24-32); TOTAL PROTEIN 7.4 G/DL (6.4-8.2); eGFR 26 ML/MIN
[2021-11-02] MEDS ORDERED: IODIXANOL 320 MG/ML INFUS..BTL 50ML IV ONE (14:01)
[2021-11-02] MEDS ORDERED: IODIXANOL 320 MG/ML INFUS..BTL 100ML IV ONE (14:01)
[2021-11-02 14:20] LABS: TOTAL CELLS COUNTED 100
[2021-11-02 14:21] LABS: PLATELET ESTIMATE NORMAL
[2021-11-02] MEDS ORDERED: albuterol 2.5 MG/3 ML nebule NEB ONE (15:40)
== END 2021-11-02 23:59 | disposition home or self-care (01) ==
LOC: RAD 12:51
PROVIDERS: ATTEND Internal Medicine Cardiovascular Disease
DX: R94.2 Abnormal results of pulmonary function studies (principal); I70.0 Atherosclerosis of aorta; K44.9 Diaphragmatic hernia without obstruction or gangrene; R59.0 Localized enlarged lymph nodes; I35.0 Nonrheumatic aortic (valve) stenosis; R06.02 Shortness of breath; I65.29 Occlusion and stenosis of unspecified carotid artery; Z20.822 Contact with and (suspected) exposure to COVID-19
CPT/HCPCS: 36415; 71046; 71275; 74174; 80053; 85007; 85025; 85610; 85730; 87635; 94060; 94727; 94729; 94760; C9803; Q9967

== ENCOUNTER 2022-01-19 08:16 | Inpatient (IN) | payer MEDICARE, MEDICAID ==
[2022-01-10 12:35] LABS: CLARITY,URINE SLIGHTLY CLOUDY (Clear); COLOR,URINE YELLOW (Yellow); GLUCOSE, URINE NEGATIVE (Neg); KETONES,URINE NEGATIVE (Neg); LEUKOCYTE ESTERASE ,URINE NEGATIVE (Neg); NITRITES, URINE NEGATIVE (Neg); OCCULT BLOOD,URINE SMALL (Neg); PROTEIN,URINE TRACE mg/dl (Neg); UROBILINOGEN,URINE 0.2 E.U/dL (0.2-1.0)
[2022-01-10 12:36] LABS: BASOPHILS % (AUTO) 0.6 % (0-1); EOSINOPHILS # (AUTO) 0.1 X10'3 (0-0.9); EOSINOPHILS % (AUTO) 2.6 % (0-6); LYMPHOCYTES # (AUTO) 1.6 X10'3 (1.1-4.8); LYMPHOCYTES % (AUTO) 27.9 % (21-51); MEAN CORPUSCULAR HGB CONC 33.3 g/dL (33.0-36.5); MEAN CORPUSCULAR VOLUME 96.2 FL (78-98); MEAN PLATELET VOLUME 8.9 FL (7.4-10.4); MONOCYTES # (AUTO) 0.5 X10'3 (0-0.9); MONOCYTES % (AUTO) 8.6 % (2-12); NEUTROPHILS # (AUTO) 3.3 X10'3 (1.8-7.7); NEUTROPHILS % (AUTO) 60.3 % (42-75); PRE OP HEMATOCRIT 38.2 % (35.0-45.0); PRE OP HEMOGLOBIN 12.7 g/dL (12.0-16.0); PRE OP PLATELET COUNT 202 X10'3 (140-440); RED BLOOD COUNT 3.97 X10'6 (4.20-5.60)
[2022-01-10 12:41] LABS: UA COLLECTION TYPE CLN CATCH MIDSTREAM
[2022-01-10 12:44] LABS: MUCUS STRANDS FEW /LPF (Neg); SQUAMOUS EPITHELIAL CELL,UR MANY /LPF (FEW)
[2022-01-10 12:45] LABS: BACTERIA,URINE 1+ /HPF (Neg); RBC,URINE 0-2 /HPF (0-2); WBC,URINE 0-4 /HPF (0-4)
[2022-01-10 12:48] LABS: PRE OP PROTIME 10.7 SECONDS (9.0-12.0)
[2022-01-10 12:59] LABS: ALBUMIN 3.8 G/DL (3.4-5.0); ALBUMIN/GLOBULIN RATIO 0.9 (1.1-1.5); ALKALINE PHOSPHATASE 86 IU/L (46-116); BLOOD UREA NITROGEN 47 MG/DL (7-18); BUN/CREATININE RATIO 17.7 (6.6-38.0); CALCIUM 9.6 MG/DL (8.5-10.1); CHLORIDE 102 MMOL/L (99-107); CREATININE 2.66 MG/DL (0.40-0.90); PRE OP ALT 26 U/L (30-65); PRE OP ANION GAP 12 (8-16); PRE OP AST 26 U/L (10-37); PRE OP BILIRUB, TOTAL 0.3 MG/DL (0.0-1.0); PRE OP GLUCOSE 101 MG/DL (70-104); PRE OP POTASSIUM 3.6 MMOL/L (3.4-5.1); PRE OP SODIUM 141 MMOL/L (135-145); TOTAL CARBON DIOXIDE 27.2 MMOL/L (24-32); eGFR 18 ML/MIN
[~2022-01-19] VITALS: Ht 152.4 cm; Wt 119.2 kg
[2022-01-19] VITALS (11 sets, daily range): BP systolic 123–174; BP diastolic 61–88
[~2022-01-19 08:16] MED LIST changes: -CALC667T8 PO; +NO HOME MEDS; +aspirin 325mg tablet PO ONE; +ceFAZolin inj. 2,000 MG in dextrose 5%-water 100 ML IV ONE; +ceFOXitin 2GM-NS 100mL ADDvant 100 ML IV ONE; +famotidine 20mg tablet PO ONE; +nitroPRUSSIDE (NIPRIDE) (200MCG/ML) 100ML Drip IV SCH; +ondansetron/PF 4mg/2ml inj IV PRN; +ringers solution, lacted 1,000 ML IV SCH; +vancomycin 1,500 MG in NS 300ml IV soln IV ONE; +vancomycin/NS 1 GM in NS 250 ML IV ONE
[2022-01-19] MEDS ORDERED: protamine sulfate 10mg/ml inj. ONE (09:00)
[2022-01-19 10:06] LABS: ISTAT CREATININE 2.1 mg/dL (0.6-1.1); ISTAT HGB 11.9 g/dl (12.0-16.0); ISTAT IONIZED CALCIUM 1.15 mmol/L (1.03-1.32); ISTAT K 3.7 mmol/L (3.5-5.1); POC BUN/CREATININE RATIO 15.2 (6.6-38.0)
--- NOTE | 2022-01-19 10:35 | NUR ---
LR FLUID CHANGED TO NS D/T HD PER DR TURNER
[2022-01-19] MEDS ORDERED: ondansetron/PF 4mg/2ml inj IV PRN ×2 (10:50→13:10)
[2022-01-19] MEDS ORDERED: proCHLORperazine 10 MG/2 ml inj IV PRN ×2 (10:50→13:10)
[2022-01-19] MEDS ORDERED: morphine 2 MG/ML inj. syringe IV PRN (10:50)
[2022-01-19] MEDS ORDERED: ringers solution, lacted 1,000 ML IV SCH (10:50)
[2022-01-19] MEDS ORDERED: morphine 4 MG/ML inj SYRINge IV PRN (10:50)
[2022-01-19] MEDS ORDERED: meperidine/PF 25mg/ml syringe IV PRN ×3 (10:50)
[2022-01-19] MEDS ORDERED: iohexol 300mg/ml 100ml inj. ONE (11:24)
[2022-01-19] MEDS ORDERED: LIDOcaine 1% 30ml preserv. free vial ONE (11:24)
[2022-01-19] MEDS ORDERED: ATRACURIUM 10 MG/ML 5ML INJECTION IV ONE (11:26)
[2022-01-19] MEDS ORDERED: heparin 1,000 UNITS/NS 500ml 500 ML ONE (11:29)
[2022-01-19] MEDS ORDERED: LIDOcaine 1% (10mg/ml)w/preservative inj. 20ml MDV ONE (11:33)
[2022-01-19] MEDS ORDERED: desflurane 240ml liquid inh. IH ONE (11:33)
[2022-01-19] MEDS ORDERED: dexamethasone sod phosphate 10mg/ml inj ONE (11:33)
[2022-01-19] MEDS ORDERED: midazolam 1 mg/ML 2ml injection ONE (11:45)
[2022-01-19] MEDS ORDERED: fentaNYL/PF 50MCG/1 ML 2ML syringe ONE ×2 (11:45→12:30)
[2022-01-19] MEDS ORDERED: heparin 1,000unit/ml 10ml vial 10 ML ONE (12:27)
[2022-01-19] MEDS ORDERED: propofol inj 20 ML IV ONE (12:27)
[2022-01-19] MEDS ORDERED: acetaminophen 325mg tablet PO PRN (13:10)
[2022-01-19] MEDS ORDERED: docusate sod 100mg capsule PO PRN (13:10)
[2022-01-19] MEDS ORDERED: pantoprazole 40mg Tablet.DR PO PRN (13:10)
[2022-01-19] MEDS ORDERED: labetalol 20mg/4ml (5mg/ml) syringe IV PRN (13:10)
[2022-01-19] MEDS ORDERED: diphenhydrAMINE 25mg capsule PO PRN (13:10)
[2022-01-19] MEDS ORDERED: ALPRAZolam 0.25mg tablet PO PRN (13:10)
[2022-01-19] MEDS ORDERED: neostigmine methylsulfate 1 MG/ML 10ml vial ONE (13:18)
[2022-01-19] MEDS ORDERED: glycopyrrolate 0.2mg/ml inj ONE (13:18)
--- NOTE | 2022-01-19 13:24 | NUR ---
Received from OR via ORTHO BED, accompanied by Anesthesiologist HU and report given by Anesthesiolgist.PATIENT WITH 20G PIV IN LEFT FOREARM WITH LR AT 75. PATIENT WITH + SALES REPRESENTATIVE WIRE ROPE. PUSH PULLS. SMILE IS SYMMETRICAL AND TONGUE IS MIDLINE. VSS. PATIENT WITH + DPS BILATERALLY. PATIENT VSS. ART LINE IN LEFT UE WELL. DENIES PAIN. 10L MASLN ON WITH 100% SATURATIONS. Addendum: 01/19/22 at 1338 by Audie Kramer RN, RN Amended: Links added.
[2022-01-19] MEDS: hydrALAZINE 20mg/ml inj. IV PRN ×2 (13:52→14:17)
--- NOTE | 2022-01-19 14:44 | NUR ---
Report called to receiving nurse. Transferred via SURGICAL BED WITH 2 BAGS OF LABELED BelongingS. Special Issues communicated to receiving nurse. PATIENT WITH VSS. DENIES PAIN. NO MORE NAUSEA. GROIN SITES CDI. ONE SPOT TO RIGHT GROIN BUT HAS NOT EXTENDED. LEFT IS TOTALLY CDI. NEUROLOGICALLY INTACT AND PATIENT WITH PALPABLE DORSALIS PEDIS'. VSS. JO ANN MORGAN PRESENT TO ACCEPT CARE OF THIS PATIENT. Addendum: 01/19/22 at 1514 by Audie Lara - JO ANN CHERRY Amended: Links added.
[2022-01-19] MEDS ORDERED: normal saline 1000ml 250 ML IV PRN (15:40)
[2022-01-19] MEDS ORDERED: heparin 1,000 units/ml 10ml inj IV ONE (15:40)
[2022-01-19] MEDS ORDERED: LIDOcaine 1% (10mg/ml) 2ml vial SQ ONE (15:40)
[2022-01-19] MEDS: ceFAZolin 1GM/D5W- ADD-VANTAGE 50 ML IV SCH ×3 (16:00→23:11)
[2022-01-19] MEDS: sod chloride 0.9% 10ml flush syringe IV SCH ×2 (16:00→23:55)
--- NOTE | 2022-01-19 18:32 | NUR ---
Patient in room PCU 3025. I have received report from Audie CHERRY and had the opportunity to ask questions and assume patient care.
--- NOTE | 2022-01-19 18:33 | NUR ---
Problems reprioritized. Patient report given, questions answered & plan of care reviewed with Shima CHERRY, patient stable at transfer of care.
[2022-01-19] MEDS: phenylephrine inj 50 MG in normal saline 250ml IV solN IV SCH ×2 (19:45→20:33)
[2022-01-19] MEDS: normal saline 1000ml 1,000 ML IV SCH ×2 (20:35→23:10)
[2022-01-19] MEDS: vancomycin/NS 1 GM ADD-VANTAGE 250 ML IV SCH (20:56)
[2022-01-19] MEDS ORDERED: Melatonin 3mg tablet PO SCH (21:00)
[2022-01-20 06:00] VITALS: BP 115/59
[2022-01-20 06:59] LABS: BASOPHILS % (AUTO) 0.4 % (0-1); EOSINOPHILS # (AUTO) 0.1 X10'3 (0-0.9); EOSINOPHILS % (AUTO) 1.1 % (0-6); HEMATOCRIT 34.6 % (35.0-45.0); HEMOGLOBIN 11.5 g/dl (12.0-16.0); LYMPHOCYTES # (AUTO) 0.7 X10'3 (1.1-4.8); MEAN CORPUSCULAR HEMOGLOBIN 31.8 PG (27.0-31.0); MEAN CORPUSCULAR HGB CONC 33.2 g/dL (33.0-36.5); MEAN CORPUSCULAR VOLUME 95.8 FL (78-98); MEAN PLATELET VOLUME 8.8 FL (7.4-10.4); MONOCYTES # (AUTO) 0.6 X10'3 (0-0.9); MONOCYTES % (AUTO) 11.9 % (2-12); NEUTROPHILS # (AUTO) 3.9 X10'3 (1.8-7.7); NEUTROPHILS % (AUTO) 73.6 % (42-75); PLATELET COUNT 151 X10'3 (140-440); RED BLOOD COUNT 3.62 X10'6 (4.20-5.60); RED CELL DISTRIBUTION WIDTH 13.5 % (11.5-14.5); WHITE BLOOD COUNT 5.3 X10'3 (4.5-11.0)
[2022-01-20] MEDS: ceFAZolin 1GM/D5W- ADD-VANTAGE 50 ML IV SCH (07:24)
[2022-01-20] MEDS: sod chloride 0.9% 10ml flush syringe IV SCH (07:24)
[2022-01-20 07:33] LABS: ALANINE AMINOTRANSFERASE 22 U/L (12-78); ALBUMIN/GLOBULIN RATIO 0.8 (1.1-1.5); ALKALINE PHOSPHATASE 74 IU/L (46-116); ANION GAP 7 (8-16); ASPARTATE AMINO TRANSFERASE 31 U/L (10-37); BILIRUBIN,TOTAL 0.5 MG/DL (0.1-1.0); BLOOD UREA NITROGEN 13 MG/DL (7-18); BUN/CREATININE RATIO 7.5 (6.6-38.0); CALCIUM 8.8 MG/DL (8.5-10.1); CHLORIDE 103 MMOL/L (99-107); CREATININE 1.74 MG/DL (0.40-0.90); GLUCOSE 105 MG/DL (70-104); MAGNESIUM 1.9 MG/DL (1.5-2.4); POTASSIUM 3.9 MMOL/L (3.5-5.1); SODIUM 138 MMOL/L (135-145); TOTAL CARBON DIOXIDE 28.1 MMOL/L (24-32); TOTAL PROTEIN 6.8 G/DL (6.4-8.2); eGFR 30 ML/MIN
[2022-01-20] MEDS ORDERED: aspirin 81mg tab.chew PO SCH (08:30)
[2022-01-20] MEDS: vancomycin/NS 1 GM ADD-VANTAGE 250 ML IV SCH (08:59)
[2022-01-20] MEDS ORDERED: ASPI81TA53 PO (09:27)
[2022-01-20 11:00] VITALS: BP 129/65
--- NOTE | 2022-01-20 12:51 | NUR ---
Ambulate unassisted 300 feet. No bleeding from R groin and none from L Groin. Steri strips intact.
--- NOTE | 2022-01-20 12:53 | NUR ---
Discharge instruction is received and understood. Patient has all of her belongings, follow up dialysis appointments are arranged. Steady gait and no bleeding at cath sites R/L.
[2022-01-21 15:52] LABS: HBSAG SCREEN Negative (Negative)
== END 2022-01-20 13:12 | disposition home or self-care (01) | DRG 266 ==
LOC: PAS IN 08:16 → PCU 3S 14:55
PROVIDERS: ADMIT Internal Medicine Cardiovascular Disease; ATTEND Internal Medicine Cardiovascular Disease
PROC: B41D1ZZ Fluoroscopy of Aorta and Bilateral Lower Extremity Arteries using Low Osmolar Contrast (ICD-10-PCS; 2022-01-19)
PROC: 5A1D70Z Performance of Urinary Filtration, Intermittent, Less than 6 Hours Per Day (ICD-10-PCS; 2022-01-19)
PROC: X2RF332 Replacement of Aortic Valve using Zooplastic Tissue, Rapid Deployment Technique, Percutaneous Approach, New Technology Group 2 (ICD-10-PCS; principal; 2022-01-19 11:33)
DX: I35.0 Nonrheumatic aortic (valve) stenosis (principal); N18.6 End stage renal disease; I12.0 Hypertensive chronic kidney disease with stage 5 chronic kidney disease or end stage renal disease; G47.33 Obstructive sleep apnea (adult) (pediatric); M19.90 Unspecified osteoarthritis, unspecified site; Z96.653 Presence of artificial knee joint, bilateral; Z99.2 Dependence on renal dialysis; Z98.1 Arthrodesis status; Z00.6 Encounter for examination for normal comparison and control in clinical research program
CPT/HCPCS: 33361; 36415; 71045; 71046; 76937; 80047; 80053; 81001; 83735; 83880; 85025; 85347; 85610; 85730; 86885; 86900; 86901; 86920; 87081; 87340; 93308; 93325; 93355; A4618; A6258; A6449; C1756; C1760; C1769; C1894; G0257; G0378; J0360; J0690; J1100; J1644; J2250; J2370; J2405; J2704; J2710; J2720; J3010; J3370; J3490; J7040; J7050; J7060; J7120; Q9967; U0003; U0005

== ENCOUNTER 2024-09-29 08:52 | Emergency (ER) | payer MEDICARE, MEDICAID ==
[~2024-09-29] VITALS: Ht 152.4 cm; Wt 85.2 kg
[~2024-09-29 08:52] MED LIST changes: +ASPI81TA53 PO; -aspirin 325mg tablet PO ONE; -ceFAZolin inj. 2,000 MG in dextrose 5%-water 100 ML IV ONE; -ceFOXitin 2GM-NS 100mL ADDvant 100 ML IV ONE; -famotidine 20mg tablet PO ONE; -nitroPRUSSIDE (NIPRIDE) (200MCG/ML) 100ML Drip IV SCH; -ondansetron/PF 4mg/2ml inj IV PRN; -ringers solution, lacted 1,000 ML IV SCH; -vancomycin 1,500 MG in NS 300ml IV soln IV ONE; -vancomycin/NS 1 GM in NS 250 ML IV ONE
[2024-09-29 10:00] LABS: ALBUMIN 3.5 G/DL (3.4-5.0); ANION GAP 9 (8-16); BLOOD UREA NITROGEN 30 MG/DL (7-18); BUN/CREATININE RATIO 18.6 (10.0-20.0); CALCIUM 8.7 MG/DL (8.5-10.1); CHLORIDE 110 MMOL/L (99-107); CREATININE 1.61 MG/DL (0.40-0.90); GLUCOSE 84 MG/DL (70-104); SODIUM 142 MMOL/L (135-145); TOTAL CARBON DIOXIDE 23.1 MMOL/L (24-32); eCRCL 27 ML/MIN; eGFR 33 ML/MIN
[2024-09-29 10:48] VITALS: BP 165/96; PULSE 65; RESP 20; TEMP 97.7; O2SAT 98
== END 2024-09-29 10:45 | disposition home or self-care (01) ==
LOC: ER 08:54
DX: R60.0 Localized edema (principal); I12.0 Hypertensive chronic kidney disease with stage 5 chronic kidney disease or end stage renal disease; N18.6 End stage renal disease; G47.30 Sleep apnea, unspecified; Z79.82 Long term (current) use of aspirin; Z99.2 Dependence on renal dialysis
CPT/HCPCS: 36415; 80048; 99283

== ENCOUNTER 2025-06-17 19:20 | Emergency (ER) | payer OTHER, MEDICAID ==
[~2025-06-17] VITALS: Ht 152.4 cm; Wt 99.0 kg
--- NOTE | 2025-06-17 20:29 | Physician Documentation ---
History of Present Illness ~ Chief Complaint: Headache Stated Complaint: SHARP HEAD PAIN Time Seen by MD: 22:55 Primary Medical Doctor: Dr. Villeda [facility] This is a 60-year-old female with a history of kidney failure who presents with right flank pain and intermittent right temporal pain. Patient reports temporal pain occasionally worse with chewing though typically has no precipitating or palliating factors, patient reports when pain is present in lasts several sec before resolving. Patient reports that she has been on dialysis at one point though was able to get off of it after kidney function recovered. Patient reports no other acute symptoms or concerns including no fevers or vision changes. Currently no headache or flank pain. Medication Reconciliation Allergies: Coded Allergies: No Known Allergies (Unverified , 06/17/25) Scheduled Aspirin (Children's Aspirin), 81 MG PO Q24H@0830 Miscellaneous Medications Home Med List (No Home Medications), (Reported) Past Medical History Past Medical History: Aortic Stenosis, Hypertension, Sleep Apnea, Chronic Kidney Disease, Dialysis, Cellulitis Past Surgical History: noncontributory Alcohol Use: None Drug Use: none Lives In: Home Review of Systems ROS As stated above in the HPI, otherwise all systems are reviewed and negative. Physical Exam Physical Exam Vital Signs: Temperature: 97.3, Source: Temporal, Heart Rate: 78, Respiratory Rate: 15, BP: 200/103, Pulse Oximetry: 98, Weight: 99.000 Physical Exam General: Patient is awake, alert, oriented x4 in no acute distress and well appearing.~ Head: Normocephalic and atraumatic. Eyes: Conjunctival normal. EOMI. PERRL. ENT: Mucous membranes moist. No tenderness to palpation over temporal artery Neck: Supple, trachea is midline. Chest: Clear to auscultation bilaterally without rales, rhonchi, or wheezes. There is no accessory muscle use or retractions. Cardiac: RRR without murmurs, gallops, or rubs. Abd: Soft, nondistended, nontender, with normoactive bowel sounds. No guarding, rebound, or rigidity. Extremities: Normal strength. Normal range of motion. No deformities or edema. Back: No tenderness to palpation Progress Results/Orders Results/Orders Orders - DEO PAUL MD Cult Urine + [place] [address] (06/17/25 20:55) Completed Orders - DEO PAUL MD Hcg, Ur Ql (06/17/25 20:04) Cbc/Diff (06/17/25 20:04) BMP (06/17/25 20:04) Lipase (06/17/25 20:04) CMP (06/17/25 20:04) Ua W/Microscopic, Cult If Ind (06/17/25 20:20) Vital Signs 06/17/25 20:00 Temp 97.3 Pulse 78 Resp 15 B/P (MAP) 200/103 Pulse Ox 98 Laboratory Tests Test 06/17/25 20:20 White Blood Count 7.7 Red Blood Count 4.73 Hemoglobin 15.1 Hematocrit 44.4 Mean Corpuscular Volume 93.9 Mean Corpuscular Hemoglobin 31.9 H Mean Corpuscular Hemoglobin Concent 33.9 Red Cell Distribution Width 14.2 Platelet Count 192 Mean Platelet Volume 9.7 Neutrophils (%) (Auto) 64.4 Lymphocytes (%) (Auto) 24.0 Monocytes (%) (Auto) 8.7 Eosinophils (%) (Auto) 2.3 Basophils (%) (Auto) 0.6 Neutrophils # (Auto) 4.9 Lymphocytes # (Auto) 1.8 Monocytes # (Auto) 0.7 Eosinophils # (Auto) 0.2 Basophils # (Auto) 0.0 CBC Comment Erythrocyte Sedimentation Rate 28 Urine Specimen Description Non-specified Urine Color Straw Urine Clarity Slightly cloudy Urine pH 6.0 Urine Specific [place] 1.015 Urine Protein 30 H Urine Glucose (UA) Negative Urine Ketones Negative Urine Occult Blood Moderate H Urine Nitrite Negative Urine Bilirubin Negative Urine Urobilinogen 0.2 Urine Leukocyte Esterase Small H Urine RBC 3-10 Urine WBC 5-10 H Urine Squamous Epithelial Cells Few Urine Bacteria Few Urine Yeast Few Urine Culture Indicated Indicated Volume Urine Centrifuged 10 ml Urine HCG, Qualitative Negative Urine Comment Sodium Level 140 Potassium Level 3.2 L Chloride Level 103 Carbon Dioxide Level 27.6 Anion Gap 9 Blood Urea Nitrogen 32 H Creatinine 2.33 H Estimated GFR/1.73 m2 21 BUN/Creatinine Ratio 13.7 Glucose Level 96 Calcium Level 8.8 Total Bilirubin 0.4 Aspartate Amino Transf (AST/SGOT) 23 Alanine Aminotransferase (ALT/SGPT) 20 Alkaline Phosphatase 105 C-Reactive Protein 0.20 Total Protein 8.1 Albumin 3.7 Globulin 4.4 H Albumin/Globulin Ratio 0.8 L Lipase 50 Chemistry Comments Microbiology Date/Time Source Procedure Growth Status 06/17/25 20:55 Urine Nonspecified Urine Culture - Preliminary Culture received. Resulted Medical Decision Making Additional information obtaine: old records Findings Patient presented to the emergency room with headache and flank pain. Differentials include but are not limited to acute kidney injury, urinary tract infection, pyelonephritis, kidney stone, temporal arteritis meningitis therefore emergent labs ordered which were reassuring. No current symptoms and he had not feel patient requires CT scan. ER precautions discussed. Noted hematuria however this appears chronic. Differential Dx:Considerations: Bowel obstruction Departure Disposition: HOME / SELF CARE / HOMELESS Impression: Primary Impression: Headache Additional Impression: Back pain Condition: Stable Discharge Instructions: Headache Referrals: NO PRIMARY CARE PROVIDER (PCP) Signature Scribe Signature: No scribe Attestation: The note accurately reflects work and decisions made by me.Deo Paul MD 06/17/25 23:11 STEFAN QUINTERO Jun 17, 2025 20:29 DEO PAUL MD Jun 17, 2025 23:11
[2025-06-17 20:35] LABS: MEAN PLATELET VOLUME 9.7 FL (7.4-10.4); RED CELL DISTRIBUTION WIDTH 14.2 % (11.5-14.5)
[2025-06-17 20:36] LABS: URINE HCG NEGATIVE (NEG)
[2025-06-17 20:45] LABS: CREATININE 2.33 MG/DL (0.40-0.90); TOTAL CARBON DIOXIDE 27.6 MMOL/L (24-32); eCRCL 18 ML/MIN; eGFR 21 ML/MIN
[2025-06-17 20:49] LABS: LEUKOCYTE ESTERASE ,URINE SMALL (Neg); NITRITES, URINE NEGATIVE (Neg); OCCULT BLOOD,URINE MODERATE (Neg)
[2025-06-17 20:54] LABS: UA COLLECTION TYPE NON-SPECIFIED
[2025-06-17 20:55] LABS: SQUAMOUS EPITHELIAL CELL,UR FEW /LPF (FEW); YEAST FEW /HPF (NEGATIVE)
[2025-06-17 23:41] VITALS: BP 159/75; PULSE 64; RESP 16; TEMP 97.3; O2SAT 96
== END 2025-06-17 23:45 | disposition home or self-care (01) ==
LOC: ER 19:20
DX: R51.9 Headache, unspecified (principal); M54.9 Dorsalgia, unspecified; G47.30 Sleep apnea, unspecified; I12.0 Hypertensive chronic kidney disease with stage 5 chronic kidney disease or end stage renal disease; N18.6 End stage renal disease; Z99.2 Dependence on renal dialysis
CPT/HCPCS: 36415; 80053; 81001; 81025; 83690; 85025; 85651; 86140; 87088; 99283